=== PATIENT | female | born 1945 | race African-American/Black ===

== ENCOUNTER 2017-07-09 11:01 | Outpatient (CLI) | payer MEDICARE, OTHER ==
[~2017-07-09 11:01] MED LIST: ACETAMINOPHEN-1 EAC1 ORAL; HYDRALAZINE HC100 MG ORAL; METOPROLOL SUC100 MG ORAL; UNOBMED; cholesterol pill; hydrochlorothiazide
[2017-07-09 12:08] LABS: ANION GAP 9 mmol/L (5-15); BLOOD UREA NITROGEN 36 mg/dL (7-18); CALCIUM 9.1 MG/DL (8.5-10.1); CARBON DIOXIDE 22 MMOL/L (21-32); CHLORIDE 109 MMOL/L (98-107); CREATININE 1.9 MG/DL (0.55-1.30); POTASSIUM 5.6 MMOL/L (3.5-5.1); SODIUM 140 MMOL/L (136-145)
== END 2017-07-09 13:01 | disposition home or self-care (01) ==
LOC: LAB 11:01
DX: I27.20 Pulmonary hypertension, unspecified (principal)
CPT/HCPCS: 36415; 80048

== ENCOUNTER 2017-09-07 10:27 | Outpatient (CLI) | payer MEDICARE, OTHER ==
[2017-09-07 11:32] LABS: ANION GAP 9 mmol/L (5-15); BLOOD UREA NITROGEN 28 mg/dL (7-18); CALCIUM 9.1 MG/DL (8.5-10.1); CARBON DIOXIDE 25 MMOL/L (21-32); CHLORIDE 104 MMOL/L (98-107); CREATININE 2.2 MG/DL (0.55-1.30); POTASSIUM 4.8 MMOL/L (3.5-5.1); SODIUM 138 MMOL/L (136-145)
== END 2017-09-07 12:27 | disposition home or self-care (01) ==
LOC: LAB 10:27
DX: I10 Essential (primary) hypertension (principal)
CPT/HCPCS: 36415; 80048

== ENCOUNTER 2017-11-02 22:21 | Inpatient (IN) | payer MEDICARE, OTHER ==
[~2017-11-02] VITALS: Ht 165.1 cm; Wt 74.8 kg
[2017-11-02] MEDS ORDERED: HYZAAR 100-251 EACH ORAL (22:30)
[2017-11-02] MEDS ORDERED: Sodium Chloride 500ML 500 ML IV ONE (22:34)
[2017-11-03 00:03] LABS: BASOPHILS % (AUTO) 0.9 % (0.0-2.0); HEMATOCRIT 34.2 % (37.0-47.0); HEMOGLOBIN 11.2 G/DL (12.0-16.0); LYMPHOCYTES % (AUTO) 30.8 % (20.0-45.0); MEAN CORPUSCULAR VOLUME 97 FL (80-99); MONOCYTES % (AUTO) 9.5 % (1.0-10.0); NEUTROPHILS % (AUTO) 53.9 % (45.0-75.0); PLATELET COUNT 189 K/UL (150-450); RED BLOOD COUNT 3.52 M/UL (4.20-5.40); RED CELL DISTRIBUTION WIDTH 12.5 % (11.6-14.8); WHITE BLOOD COUNT 7.1 K/UL (4.8-10.8)
[2017-11-03 00:10] LABS: ANION GAP 8 mmol/L (5-15); BLOOD UREA NITROGEN 46 mg/dL (7-18); CALCIUM 8.4 MG/DL (8.5-10.1); CARBON DIOXIDE 24 MMOL/L (21-32); CHLORIDE 108 MMOL/L (98-107); CREATININE 2.4 MG/DL (0.55-1.30); POTASSIUM 5.3 MMOL/L (3.5-5.1); SODIUM 139 MMOL/L (136-145)
[2017-11-03 00:24] LABS: ALANINE AMINOTRANSFERASE 23 U/L (12-78); ALBUMIN 3.1 G/DL (3.4-5.0); ALBUMIN/GLOBULIN RATIO 0.8 (1.0-2.7); ALKALINE PHOSPHATASE 84 U/L (46-116); ASPARTATE AMINO TRANSFERASE 21 U/L (15-37); BILIRUBIN,TOTAL 0.1 MG/DL (0.2-1.0); CKMB 1.9 NG/ML (0.0-3.6); CREATINE KINASE 186 U/L (26-308)
[2017-11-03] MEDS ORDERED: Sodium Polystyrene Sulfonate 15gm Powder ORAL ONE (00:30)
--- NOTE | 2017-11-03 01:23 | Emergency Room Report ---
History of Present Illness General Chief Complaint: Abnormal Labs Source: Patient, Medical Record Present Illness HPI Patient was sent in for abnormal potassium levels Patient appears to have had initial potassium level several days ago one earlier today Patient was recommended to come to the emergency room at the time that the report was given however patient was not able to do so and presents at this time Denies any chest pain or shortness of breath Patient has been getting set for clearance for cataract surgery denies any vomiting or diarrhea Allergies: Coded Allergies: AMPICILLIN (Unverified Allergy, Intermediate, ITCH, 11/02/17) SULFA (SULFONAMIDE ANTIBIOTICS) (Unverified Allergy, Unknown, 11/02/17) swelling Patient History Past Medical History: see triage record Pertinent Family History: none Last Menstrual Period: n/a Reviewed Nursing Documentation: PMH: Agreed; PSxH: Agreed Nursing Documentation-PM Past Medical History: No Stated History Hx Cardiac Problems: Yes - high cholestrol Hx Hypertension: Yes Hx Cancer: No Hx Gastrointestinal Problems: No Hx Weakness: Yes Review of Systems All Other Systems: negative except mentioned in HPI Physical Exam Vital Signs Date Time Temp Pulse Resp B/P (MAP) Pulse Ox O2 Delivery O2 Flow Rate FiO2 11/02/17 22:24 97.9 69 16 180/84 97 Room Air 97.9 Sp02 EP Interpretation: reviewed, normal General Appearance: no apparent distress Head: normocephalic, atraumatic Eyes: bilateral eye PERRL ENT: hearing grossly normal, normal pharynx Neck: full range of motion, supple Respiratory: no respiratory distress Cardiovascular #1: regular rate, rhythm, no edema Gastrointestinal: non tender, soft Musculoskeletal: normal inspection Neurologic: alert, oriented x3, responsive Skin: normal color, no rash Lymphatic: no adenopathy Medical Decision Making Diagnostic Impression: Primary Impression: Hyperkalemia ER Course Patient is complex with multiple differentials considered Extensive blood work was initiated Patient's potassium still remains elevated at 5.3 EKG does not show any obvious gross T-wave changes however there are some subtle differences Patient requires acute intervention Requires admission for further care Labs Test 11/02/17 23:49 White Blood Count 7.1 K/UL (4.8-10.8) Red Blood Count 3.52 M/UL (4.20-5.40) Hemoglobin 11.2 G/DL (12.0-16.0) Hematocrit 34.2 % (37.0-47.0) Mean Corpuscular Volume 97 FL (80-99) Mean Corpuscular Hemoglobin 31.9 PG (27.0-31.0) Mean Corpuscular Hemoglobin Concent 32.9 G/DL (32.0-36.0) Red Cell Distribution Width 12.5 % (11.6-14.8) Platelet Count 189 K/UL (150-450) Mean Platelet Volume 8.3 FL (6.5-10.1) Neutrophils (%) (Auto) 53.9 % (45.0-75.0) Lymphocytes (%) (Auto) 30.8 % (20.0-45.0) Monocytes (%) (Auto) 9.5 % (1.0-10.0) Eosinophils (%) (Auto) 5.0 % (0.0-3.0) Basophils (%) (Auto) 0.9 % (0.0-2.0) Sodium Level 139 MMOL/L (136-145) Potassium Level 5.3 MMOL/L (3.5-5.1) Chloride Level 108 MMOL/L (98-107) Carbon Dioxide Level 24 MMOL/L (21-32) Anion Gap 8 mmol/L (5-15) Blood Urea Nitrogen 46 mg/dL (7-18) Creatinine 2.4 MG/DL (0.55-1.30) Estimat Glomerular Filtration Rate mL/min (>60) Glucose Level 108 MG/DL (74-106) Calcium Level 8.4 MG/DL (8.5-10.1) Total Bilirubin 0.1 MG/DL (0.2-1.0) Aspartate Amino Transf (AST/SGOT) 21 U/L (15-37) Alanine Aminotransferase (ALT/SGPT) 23 U/L (12-78) Alkaline Phosphatase 84 U/L (46-116) Total Creatine Kinase 186 U/L (26-308) Creatine Kinase MB 1.9 NG/ML (0.0-3.6) Creatine Kinase MB Relative Index 1.0 Troponin I 0.000 ng/mL (0.000-0.056) Total Protein 6.8 G/DL (6.4-8.2) Albumin 3.1 G/DL (3.4-5.0) Globulin 3.7 g/dL Albumin/Globulin Ratio 0.8 (1.0-2.7) Rhythm Strip Diag. Results EP Interpretation: yes Rate: 88 Rhythm: NSR, no PVC's, no ectopy Chest X-Ray Diagnostic Results Chest X-Ray Diagnostic Results : Chest X-Ray Ordered: Yes # of Views/Limited/Complete: 1 View Indication: Chest Pain EP Interpretation: Yes Interpretation: no consolidation, no effusion, no pneumothorax Impression: No acute disease Electronically Signed by: Candis Keating DO Last Vital Signs Date Time Temp Pulse Resp B/P (MAP) Pulse Ox O2 Delivery O2 Flow Rate FiO2 11/02/17 22:24 97.9 69 16 180/84 97 Room Air 97.9 Status: improved Disposition: ADMITTED INPATIENT Condition: Serious Referrals: Danny Nash MD (PCP) Candis Keating DO November 03, 2017 01:23
[2017-11-03 02:00] VITALS: BP 182/87
[2017-11-03 02:07] VITALS: BP 138/89
[2017-11-03] MEDS ORDERED: DIAZEPAM10 MG PO (02:45)
[2017-11-03] MEDS ORDERED: EZETIMIBE (02:45)
[2017-11-03 04:00] VITALS: BP 148/65
[2017-11-03] MEDS ORDERED: Tylenol #3 tab (300mg/30mg) ORAL PRN (06:45)
[2017-11-03] MEDS ORDERED: METOPROLOL TAR100 M1 PO (06:46)
[2017-11-03 08:00] VITALS: BP 149/81
[2017-11-03 08:07] LABS: BASOPHILS % (AUTO) 0.8 % (0.0-2.0); EOSINOPHILS % (AUTO) 6.1 % (0.0-3.0); HEMATOCRIT 32.8 % (37.0-47.0); HEMOGLOBIN 10.5 G/DL (12.0-16.0); LYMPHOCYTES % (AUTO) 31.7 % (20.0-45.0); MEAN CORPUSCULAR VOLUME 97 FL (80-99); MONOCYTES % (AUTO) 9.2 % (1.0-10.0); NEUTROPHILS % (AUTO) 52.2 % (45.0-75.0); PLATELET COUNT 168 K/UL (150-450); RED BLOOD COUNT 3.37 M/UL (4.20-5.40); RED CELL DISTRIBUTION WIDTH 12.4 % (11.6-14.8); WHITE BLOOD COUNT 5.8 K/UL (4.8-10.8)
[2017-11-03 08:30] LABS: ALANINE AMINOTRANSFERASE 24 U/L (12-78); ALBUMIN 2.9 G/DL (3.4-5.0); ALBUMIN/GLOBULIN RATIO 0.8 (1.0-2.7); ALKALINE PHOSPHATASE 83 U/L (46-116); ANION GAP 7 mmol/L (5-15); ASPARTATE AMINO TRANSFERASE 23 U/L (15-37); BILIRUBIN,TOTAL 0.2 MG/DL (0.2-1.0); BLOOD UREA NITROGEN 42 mg/dL (7-18); CALCIUM 8.5 MG/DL (8.5-10.1); CARBON DIOXIDE 25 MMOL/L (21-32); CHLORIDE 109 MMOL/L (98-107); CREATININE 2.1 MG/DL (0.55-1.30); POTASSIUM 4.8 MMOL/L (3.5-5.1); SODIUM 141 MMOL/L (136-145)
[2017-11-03] MEDS ORDERED: HydrALAZINE 50mg tab ORAL SCH (09:00)
--- NOTE | 2017-11-03 11:31 | Diagnostic Imaging Report ---
Indication: Chest pain Technique: One view of the chest Comparison: none Findings: Lungs and pleural spaces are clear. The heart size is normal. The aorta is calcified. There is no significant interim change Impression: No acute process
[2017-11-03 12:00] VITALS: BP 149/81
--- NOTE | 2017-11-03 13:15 | Consultation ---
DATE OF CONSULTATION: 11/03/2017 CONSULTING PHYSICIAN: Akhil Prince M.D. REFERRING PHYSICIAN: Danny Nash M.D. REASON FOR CONSULTATION: 1. Acute kidney injury. 2. CKD 4. 3. Hyperkalemia. HISTORY OF PRESENT ILLNESS: The patient is a pleasant 72-year-old female, who is instructed to go to the emergency room for further evaluation and care due to abnormal labs where it was noted that the patient had an elevated potassium. Upon presentation, the patient had a potassium of 5.3 with a creatinine of 2.4. The patient was hydrated and given Kayexalate. This morning, creatinine is down to 2.1 and potassium down to 4.8. The patient had a creatinine five days ago in the baseline range of 2.1. 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 No current chest pain or shortness of breath. ALLERGIES: 1. Ampicillin. 2. Sulfa. PAST MEDICAL HISTORY: 1. CKD 4. 2. Hypertension. 3. Hyperlipidemia. SOCIAL HISTORY: No tobacco, alcohol, or illicit drug use. PAST SURGICAL HISTORY: Noncontributory. REVIEW OF SYSTEMS: NEUROLOGIC: The patient denies headache, change in vision, syncope, or presyncopal episodes. CARDIOVASCULAR: No current chest pain, palpitations, or angina. PULMONARY: No difficulty breathing or productive cough or sputum. GASTROINTESTINAL/GENITOURINARY: No change in urinary or bowel habits. No nausea, vomiting, or diarrhea. ENDOCRINOLOGY: No night sweats, fevers, or chills. PHYSICAL EXAMINATION: VITAL SIGNS: Blood pressure 148/65, pulse 67, temperature 97.4, and 100% oxygen saturation on room air. GENERAL: The patient is awake, alert, not otherwise in distress. HEENT: Extraocular muscles intact. No lymphadenopathy noted. CARDIOVASCULAR: S1 and S2. No rubs or gallops. PULMONARY: Clear to auscultation bilaterally. No rales, rhonchi, or wheezes. ABDOMEN: Nondistended and nontender. EXTREMITIES: No edema. ASSESSMENT AND PLAN: 1. Acute kidney injury on CKD stage 4. The patient's creatinine within baseline range, creatinine from October 29, 2017. At this time, renal function is stable. We will order a renal ultrasound and the patient to follow up as an outpatient for CKD evaluation. 2. Mild hyperkalemia, potassium 5.3 down to normal range. Status post Kayexalate treatment. At this time, renal ultrasound will also be ordered to rule out the possibility of any underlying obstruction. 3. Hypertension, stable. Adjust medications as deemed appropriate. Let me take this opportunity to thank Dr. Nash, for allowing me to assist in the care of this patient during her hospitalization. I appreciate his confidence in my nephrological service. Akhil Prince MD DR: MANFRED JOB#: [id number] CC:
--- NOTE | 2017-11-03 13:30 | History and Physical Report ---
DATE OF ADMISSION: 11/03/2017 REASON FOR ADMISSION: Acute on chronic renal failure. HISTORY OF PRESENT ILLNESS: This 72-year-old female noted to have elevated potassium. The patient was sent to the emergency room for further evaluation and has had a persistently elevated potassium level. The patient is also with worsening renal function. The patient's care was discussed and reviewed with the ER physician. The patient is now admitted for ongoing care and management and further evaluation in the acute setting and treatment of the elevated potassium. The patient has been taking her medications as prescribed. She denies any potassium use. Denies any ARB or NADIA use at present. The patient denies any issues with urine output and has been trying to get clearance for cataract surgery, which prompted repeating these laboratory data. The patient is now being admitted. She is otherwise stable. PAST MEDICAL HISTORY: Notable for, 1. Hypertension. 2. Chronic renal insufficiency. 3. Chronic pain. 4. Chronic anxiety. 5. Cataracts bilaterally. 6. Hypercholesterolemia. MEDICATIONS: Reviewed. ALLERGIES: Reviewed. SOCIAL HISTORY: The patient is a nonsmoker and nondrinker at present. She is retired and disabled. REVIEW OF SYSTEMS: All 10 points reviewed and otherwise negative. PHYSICAL EXAMINATION: GENERAL: A well-developed female, in no significant distress. VITAL SIGNS: Blood pressure 148/65, pulse 67, sats 100%, temperature 97.4, and respiratory rate 20. HEENT: Overall negative. Extraocular movements are grossly intact. Cataracts noted. Oropharynx moist. LUNGS: Clear. No rhonchi or wheezes. CARDIAC: S1 and S2. Regular rate and rhythm. Soft systolic murmur. Positive S4. ABDOMEN: Soft, nontender, and nondistended. EXTREMITIES: No cyanosis or clubbing. No significant edema. NEUROLOGICAL: Grossly nonfocal and alert. SKIN: Noted. LABORATORY DATA: Lab data reviewed. BUN 46 and creatinine 2.4. Blood sugar 108. Potassium 5.3 . Albumin is 3.1. Hemoglobin 11.2 and hematocrit 34. IMPRESSION: 1. Acute on chronic renal failure. 2. Hyperkalemia. 3. Mild anemia. 4. Hypertension. 5. Hypertensive heart disease. 6. Hypertensive nephropathy. 7. Hypercholesterolemia. RECOMMENDATIONS: 1. Supportive care. 2. Resume medications. 3. IV hydration. 4. Followup care. 5. Followup renal function. 6. Renal evaluation. 7. Monitor clinically and discharge once stable and hope to provide clearance once electrolytes have improved. Danny Nash M.D. DR: BRIDGET JOB#: [id number] CC:
[2017-11-03 13:54] VITALS: BP 152/81
--- NOTE | 2017-11-03 14:31 | Cardiology Report ---
APPROVED REPORT EKG Measurement Heart [id number] Normal sinus rhythm Possible Left atrial enlargement Left ventricular hypertrophy Abnormal ECG
--- NOTE | 2017-11-05 09:52 | Discharge Summary ---
Discharge Summary Hospital Course Date of Admission November 03, 2017 at 00:36 Date of Discharge November 03, 2017 at 13:41 Admitting Diagnosis hyperkalemia HPI Amy Peng is a 72 year old female who was admitted on November 03, 2017 at 00:36 for Hyperkalemia Hospital Course [id number] Discharge Discharge Disposition Patient was discharged to Home (01) Kajal Murphy NP November 05, 2017 09:51
--- NOTE | 2017-11-06 02:15 | Discharge Summary 2 SIG ---
DATE OF ADMISSION: 11/03/2017 DATE OF DISCHARGE: 11/03/2017 LAND COMMISSIONER: Akhil Prince M.D. BRIEF HOSPITAL COURSE: The patient is a 72-year-old female, who was noted to have elevated potassium. She was sent to emergency room for further evaluation where on examination continued to have persistently elevated potassium of 5.3. She was also noted to be in renal failure. Creatinine was elevated to 2.4 and BUN 46. She was admitted for evaluation of acute renal failure and elevated potassium. She denied any potassium use. Denied any ARB or NADIA inhibitor. She has medical history notable for hypertension, chronic renal insufficiency, chronic pain, chronic anxiety, bilateral cataracts, and hypercholesterolemia. She was seen by rehab assistant. The patient was given Kayexalate. Following day, creatinine went down to 2.1 and potassium 4.8. The patient had acute kidney injury on chronic kidney disease stage 4. Due to rapid improvement in the patient's symptoms, she was eventually discharged home. Renal ultrasound to be done as outpatient. FINAL DIAGNOSES: 1. Acute on chronic renal failure. 2. Chronic kidney disease stage 4. 3. Acute hyperkalemia, resolved. 4. Mild anemia. 5. Hypertension. 6. Hypertensive heart disease. 7. Hypertensive nephropathy. 8. Hypercholesterolemia. DISPOSITION: The patient was discharged home. DISCHARGE MEDICATIONS: Refer to medication list. DISCHARGE INSTRUCTIONS: Follow up with PCP in a week. Danny Nash M.D. I have been assigned to dictate discharge summary on this account and I was not involved in the patient's management. Kajal Murphy N.P. DR: BARON JOB#: [id number] CC: LOUANN
== END 2017-11-03 13:41 | disposition home or self-care (01) | DRG 684 ==
LOC: EMR 22:44 → 2E 11-03 00:36 → EDBEDREQ 11-03 00:48
DX: N17.9 Acute kidney failure, unspecified (principal); I13.10 Hypertensive heart and chronic kidney disease without heart failure, with stage 1 through stage 4 chronic kidney disease, or unspecified chronic kidney disease; N18.4 Chronic kidney disease, stage 4 (severe); F41.9 Anxiety disorder, unspecified; E78.00 Pure hypercholesterolemia, unspecified; E87.5 Hyperkalemia; D64.9 Anemia, unspecified; Z88.1 Allergy status to other antibiotic agents; Z88.2 Allergy status to sulfonamides
CPT/HCPCS: 36415; 71045; 80053; 82550; 82553; 84484; 85025; 93005; 99285

== ENCOUNTER 2018-06-09 10:05 | Outpatient (CLI) | payer MEDICARE, OTHER ==
[~2018-06-09 10:05] MED LIST changes: +DIAZEPAM10 MG PO; +EZETIMIBE; +HYZAAR 100-251 EACH ORAL; +METOPROLOL TAR100 M1 PO
--- NOTE | 2018-06-09 11:27 | Diagnostic Imaging Report ---
Clinical Indication: Shortness of breath Technique: Spiral acquisitions obtained through the chest. No IV contrast utilized, for referring physician request. Multiplanar reconstructions generated. Total dose length product 684.08 mGycm. CTDIvol(s) 20.02 mGy. Dose reduction achieved using automated exposure control Comparison: none Findings: There is a 2 mm nodular focus of pleural thickening along the pleural surface of the minor fissure on the right, image 33 series 5. There is some generalized thickening of the major fissure inferiorly on the right. Some scarring is seen in the medial right middle lobe. A granulomatous calcification is seen within the left lower lobe, with some surrounding scarring Atelectatic bands and scarring are also seen in the inferior right lower lobe. Some scarring and atelectasis is seen in the lingula and left lower lobe. No infiltrates, effusions, masses, or nodules demonstrated. Calcified granulomatous nodes are seen in the left pulmonary hilum and mediastinum. No mediastinal or hilar mass or adenopathy demonstrated. The heart size is normal. No pericardial effusion. There are coronary arterial calcifications. The right main pulmonary artery is dilated, measuring 30 mm in diameter. The thyroid is unremarkable. No axillary or chest wall mass or adenopathy. The bones are unremarkable. The esophagus is unremarkable. The included upper abdominal anatomy demonstrates a collection containing air and fluid with an air-fluid level posterior to the gastric fundus which measures 7 cm long axis dimension. This is also evident on a previous abdomen pelvis CT of 05/23/2014. Granulomatous calcifications are seen within the spleen. 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
== END 2018-06-09 12:05 | disposition home or self-care (01) ==
LOC: CAT 10:05
DX: R07.9 Chest pain, unspecified (principal); R06.02 Shortness of breath; I25.10 Atherosclerotic heart disease of native coronary artery without angina pectoris
CPT/HCPCS: 71250

== ENCOUNTER 2018-06-17 19:00 | Emergency (ER) | payer MEDICARE, OTHER ==
[~2018-06-17] VITALS: Ht 167.6 cm; Wt 77.1 kg
[2018-06-17 19:05] VITALS: BP 170/84
[2018-06-17] MEDS ORDERED: Ketorolac 30mg Inj IM ONE (19:30)
--- NOTE | 2018-06-17 20:13 | Emergency Room Report ---
History of Present Illness General Chief Complaint: Pain Present Illness HPI 73-year-old female presents to the emergency department complaining of 8 out of 10 in severity localized anterior left knee pain since last night. Patient denies trauma or fall she states she has a history of arthritis. Patient reports that she feels that there is some swelling in the left knee. Patient denies erythema, warmth or recent wound near the joint. Patient reports pain is worse with walking however she is able to. Patient denies calf pain posterior knee pain. Denies numbness tingling or loss of sensation or gross motor movements of the extremities, incontinence of bowel or bladder. Denies CP , Palpitations, LOC, AMS, dizziness, Changes in Vision, weakness or a sudden severe headache. (Tashia Smart) Allergies: Coded Allergies: SULFA (SULFONAMIDE ANTIBIOTICS) (Unverified Allergy, Severe, SWELLING, ) AMPICILLIN (Unverified Allergy, Intermediate, ITCHING, 11/05/17) Patient History Past Medical History: see triage record, other - Arthritis. Past Surgical History: none Pertinent Family History: none Last Menstrual Period: IVAN Now: No Reviewed Nursing Documentation: PMH: Agreed; PSxH: Agreed (Tashia Smart) Nursing Documentation-PMH Hx Cardiac Problems: Yes Hx Hypertension: Yes - HI CHOLEST Hx Cancer: No Hx Gastrointestinal Problems: No Hx Neurological Problems: Yes Hx Weakness: Yes (Tashia Smart) Review of Systems All Other Systems: negative except mentioned in HPI (Tashia Smart) Physical Exam Vital Signs Date Time Temp Pulse Resp B/P (MAP) Pulse Ox O2 Delivery O2 Flow Rate FiO2 06/17/18 19:05 98.1 74 18 99 Room Air 06/17/18 19:05 170/84 Sp02 EP Interpretation: reviewed, normal General Appearance: no apparent distress, alert, GCS 15, non-toxic Head: normocephalic, atraumatic Eyes: bilateral eye normal inspection, bilateral eye PERRL ENT: hearing grossly normal, normal voice Neck: full range of motion Respiratory: lungs clear, normal breath sounds, speaking full sentences Cardiovascular #1: regular rate, rhythm Musculoskeletal: back normal, gait/station normal, normal range of motion, swelling - mild- anterior left knee, other - no increased laxity, ambulatory and able to fully weight bear. No obvious deformity, no bruises, erythema or warmth. , tender - anterior left knee Neurologic: alert, oriented x3, responsive, motor strength/tone normal, sensory intact, speech normal, grossly normal Psychiatric: judgement/insight normal Skin: normal color, no rash, warm/dry, well hydrated (Tashia Smart) Medical Decision Making PA Attestation Dr. Luong is my supervising Physician whom patient management has been discussed with. (Tashia Smart) Diagnostic Impression: Primary Impression: Knee pain, acute Qualified Codes: M25.562 - Pain in left knee Additional Impression: Arthritis of knee, left ER Course 73-year-old female presents to the emergency department complaining of 8 out of 10 in severity localized anterior left knee pain since last night. Patient denies trauma or fall she states she has a history of arthritis. Patient reports that she feels that there is some swelling in the left knee. Patient denies erythema, warmth or recent wound near the joint. Patient reports pain is worse with walking however she is able to. Patient denies calf pain posterior knee pain. Denies numbness tingling or loss of sensation or gross motor movements of the extremities, incontinence of bowel or bladder. Denies CP , Palpitations, LOC, AMS, dizziness, Changes in Vision, weakness or a sudden severe headache. Ddx considered but are not limited to Fracture, dislocation, contusion, septic joint, pseudo gout, gout, cellulitis, effusion , Sprain/Strain/Spasm, ligamental injury just to name a few. Vital signs: are WNL, pt. is afebrile H&PE are most consistent with Knee pain secondary to arthritis, not highly suspicious of fx, will do imaging, no evidence of infection. ORDERS: X-ray Left knee complete 3 view - negative for fx, Dislocation, or significant soft tissue injury ED INTERVENTIONS: -Toradol IM - Gerald wrap applied by histologist technologist. -I do not identify an emergent condition at this time. With current presentation , pt. is stable for close outpatient follow up and conservative treatment. D/ w pt. to return promptly to ED with worsening or new symptoms.- Pt. verbalizes' understanding and agreement with proposed treatment plan.proposed treatment plan. DISCHARGE: At this time pt. is stable for d/c to home. Will provide printed patient care instructions, and any necessary prescriptions. Care plan and follow up instructions have been discussed with the patient prior to discharge. (Tashia Smart) Other X-Ray Diagnostic Results Other X-Ray Diagnostic Results : X-Ray ordered: Left knee # of Views/Limited Vs Complete: 3 View Indication: Pain EP Interpretation: Yes KASIE Xray: Interpretation reviewed, by supervising MD, and agrees with findings. Interpretation: no dislocation, no soft tissue swelling, no fractures Impression: No acute disease Electronically Signed by: Tashia Smart PA-C (Tashia Smart) Other X-Ray Diagnostic Results : Electronically Signed by: KASIE xray documentation reviewed by me and is accurate, Darío Luong MD. (Darío Luong MD) Last Vital Signs Date Time Temp Pulse Resp B/P (MAP) Pulse Ox O2 Delivery O2 Flow Rate FiO2 06/17/18 19:05 98.1 74 18 170/84 99 Room Air (Tashia Smart) Disposition: HOME, SELF-CARE Condition: Stable Scripts Ibuprofen* (MOTRIN*) 600 Mg Tablet 600 MG ORAL THREE TIMES A DAY, #20 TAB 0 Refills Prov: Tashia Smart 06/17/18 Patient Instructions: Knee Pain, [id number] Additional Instructions: Take medications as directed. Follow up with a Primary Care Provider in 3-5 days, even if your symptoms have resolved. --Please review list of primary care clinics, if you do not already have a primary care provider Return sooner to ED if new symptoms occur, or current symptoms become worse. - Please note that this Emergency Department Report was dictated using [employer] crane operator technology software, occasionally this can lead to erroneous entry secondary to interpretation by the dictation equipment. Tashia Smart Jun 17, 2018 20:13 Darío Luong MD Jun 18, 2018 21:20
[2018-06-17] MEDS ORDERED: IBUPROFEN600 MG ORAL (20:15)
[2018-06-17 20:36] VITALS: BP 170/84
--- NOTE | 2018-06-18 11:38 | Diagnostic Imaging Report ---
Indication: Left knee pain Technique: 3 views of the left knee Comparison: None Findings: There is severe medial compartmental degenerative joint space narrowing with degenerative remodeling of the medial tibial plateau. There are lateral osteophytes. There is mild patellofemoral degenerative change. No acute fractures. No dislocations. No suprapatellar effusion Impression: Degenerative changes, as described No acute bony trauma
== END 2018-06-17 20:36 | disposition home or self-care (01) ==
LOC: EMR 19:42
DX: M17.12 Unilateral primary osteoarthritis, left knee (principal)
CPT/HCPCS: 73562; 96372; 99283; J1885

== ENCOUNTER 2018-10-03 12:18 | Emergency (ER) | payer MEDICARE, OTHER ==
[~2018-10-03] VITALS: Ht 157.5 cm; Wt 83.0 kg
[~2018-10-03 12:18] MED LIST changes: +IBUPROFEN600 MG ORAL
[2018-10-03 12:43] VITALS: BP 160/63
--- NOTE | 2018-10-03 12:47 | NUR ---
ED Nurse Note: PT. AAOX4. AMBULATORY. CAME IN TO ER DUE TO BILATERAL KNEE PAIN. DENIES ANY TRAUMA AND DID NOT TAKE ANY PAIN MEDS PRIOR TO ER ARRIVAL. BILATERAL KNEE APPEARS TO BE SWOLLEN
[2018-10-03] MEDS ORDERED: Tylenol #3 tab (300mg/30mg) ORAL ONE (13:00)
[2018-10-03] MEDS ORDERED: ACETAMINOPHEN-1 EAC1 ORAL (13:39)
[2018-10-03 13:45] VITALS: BP 155/65
--- NOTE | 2018-10-03 13:46 | NUR ---
ER DISCHARGE NOTE: Patient is cleared to be discharged per ERMD, pt is aox4, on room air, with stable vital signs. pt was given dc and prescription instructions, pt was able to verbalize understanding, pt id band and iv site removed without complications. pt is able to ambulate with steady gait. pt took all belongings.
--- NOTE | 2018-10-03 14:34 | Emergency Room Report ---
History of Present Illness General Chief Complaint: Pain Source: Patient Present Illness HPI The patient is a 73-year-old female presenting for bilateral knee pain. She states that this is a chronic condition. She denies any recent injury that caused the pain. Pain is a 9 out of 10 dull ache to both knees and does not radiate. Worse with movement. She states that she usually uses Tylenol 3 for pain which does help but she ran out. She denies any history of gout. She denies other symptoms including fever, chills, rash, numbness/tingling Allergies: Coded Allergies: SULFA (SULFONAMIDE ANTIBIOTICS) (Unverified Allergy, Severe, SWELLING, ) AMPICILLIN (Unverified Allergy, Intermediate, ITCHING, 11/05/17) Patient History Past Medical History: see triage record Pertinent Family History: none Reviewed Nursing Documentation: PMH: Agreed; PSxH: Agreed Nursing Documentation-PMH Hx Cardiac Problems: Yes Hx Hypertension: Yes - HI CHOLEST Hx Cancer: No Hx Gastrointestinal Problems: No Hx Neurological Problems: Yes Hx Weakness: Yes Review of Systems All Other Systems: negative except mentioned in HPI Physical Exam Vital Signs Date Time Temp Pulse Resp B/P (MAP) Pulse Ox O2 Delivery O2 Flow Rate FiO2 10/03/18 12:43 98.6 71 18 160/63 100 Room Air Sp02 EP Interpretation: reviewed, normal General Appearance: no apparent distress, alert, GCS 15, non-toxic Musculoskeletal: back normal, normal range of motion, no calf tenderness, swelling Neurologic: alert, oriented x3, responsive Psychiatric: judgement/insight normal, memory normal, mood/affect normal, no suicidal/homicidal ideation Skin: normal color, no rash, warm/dry, well hydrated Medical Decision Making PA Attestation Dr. Ni is my supervising physician. Patient management was discussed with my supervising physician Diagnostic Impression: Primary Impression: Osteoarthritis Qualified Codes: M17.0 - Bilateral primary osteoarthritis of knee Additional Impression: Knee pain Qualified Codes: M25.561 - Pain in right knee; M25.562 - Pain in left knee ER Course The patient is a 73-year-old female presenting for bilateral knee pain. Ddx considered include but not limited to OA, sprain/strain, fracture, contusion , gout PE: Afebrile. NAD There is bilateral knee swelling. No discoloration. Skin warm and dry. Nontender to palpation. Full active range of motion intact. Patient walks with slow gait. Bilateral knee x-ray shows significant degenerative changes with diminished joint space. No acute findings The patient is given prescription for Tylenol 3 and is told to follow-up with primary doctor as soon as possible. She was told she may need to see a specialist for further management ER precautions given Other X-Ray Diagnostic Results Other X-Ray Diagnostic Results #1: X-Ray ordered: L knee # of Views/Limited Vs Complete: 3 View, Complete Indication: Pain EP Interpretation: Yes PA Xray: Interpretation reviewed, by supervising MD, and agrees with findings. Interpretation: no dislocation, no soft tissue swelling, no fractures Impression: No acute disease Electronically Signed by: Dylan Medina PA-C Other X-Ray Diagnostic Results #2: X-Ray ordered: R knee # of Views/Limited Vs Complete: 3 View, Complete Indication: Pain EP Interpretation: Yes PA Xray: Interpretation reviewed, by supervising MD, and agrees with findings. Interpretation: no dislocation, no soft tissue swelling, no fractures Impression: No acute disease Electronically Signed by: Dylan Medina PA-C Last Vital Signs Date Time Temp Pulse Resp B/P (MAP) Pulse Ox O2 Delivery O2 Flow Rate FiO2 10/03/18 13:45 98.2 85 15 155/65 99 Room Air Status: improved Disposition: HOME, SELF-CARE Condition: Improved Scripts Acetaminophen With Codeine (T#3) (TYLENOL #3 TAB*) Y Tab 1 TAB ORAL Q6HR PRN for For Pain, #10 TAB Prov: DYLAN MEDINA 10/03/18 Referrals: NON PHYSICIAN (PCP) Patient Instructions: Knee Pain, Arthritis Additional Instructions: I discussed my findings with the patient. All questions and concerns have been answered. Treatment and medication compliance have been addressed. I advised the patient that they need to follow up with primary doctor within 3 days. Return to ER if pain remains or worsens, numbness or tingling occurs, new rash is noticed, fever is noticed, or if needed for any reason. Patient verbalized understanding of discharge instructions. You may need to see a specialist for this condition. Please ask your primary doctor if this is necessary DYLAN MEDINA Oct 03, 2018 14:34
--- NOTE | 2018-10-04 09:45 | Diagnostic Imaging Report ---
Indication: Right knee pain Technique: 3 views of the knee Comparison: 11/15/2015 Findings: Again demonstrated is degenerative narrowing of all 3 joint compartments, most severe in the medial compartment. This appears to progressed slightly since the previous exam. There are also degenerative proliferative changes. No acute fractures. No dislocations. No definite suprapatellar effusion. Impression: Degenerative changes, as described. No acute bony trauma
--- NOTE | 2018-10-04 09:48 | Diagnostic Imaging Report ---
Indication: Left knee pain Technique: 3 views of the left knee Comparison: None Findings: No acute fractures. No dislocations. There is medial compartment degenerative joint space narrowing and medial and lateral osteophytes. No definite suprapatellar effusion. Impression: Degenerative changes, stable since prior study 06/17/2018. No acute bony trauma
== END 2018-10-03 15:01 | disposition home or self-care (01) ==
LOC: EMR 14:05
DX: M17.0 Bilateral primary osteoarthritis of knee (principal); E78.00 Pure hypercholesterolemia, unspecified; Z88.2 Allergy status to sulfonamides; Z88.1 Allergy status to other antibiotic agents
CPT/HCPCS: 99284

== ENCOUNTER 2019-01-06 13:17 | Outpatient (CLI) | payer MEDICARE, OTHER ==
[2019-01-06 13:42] LABS: BASOPHILS % (AUTO) 0.7 % (0.0-2.0); EOSINOPHILS % (AUTO) 2.1 % (0.0-3.0); HEMATOCRIT 37.1 % (37.0-47.0); LYMPHOCYTES % (AUTO) 19.9 % (20.0-45.0); MEAN CORPUSCULAR VOLUME 99 FL (80-99); MONOCYTES % (AUTO) 5.3 % (1.0-10.0); PLATELET COUNT 233 K/UL (150-450); RED BLOOD COUNT 3.77 M/UL (4.20-5.40); RED CELL DISTRIBUTION WIDTH 13.4 % (11.6-14.8); WHITE BLOOD COUNT 10.1 K/UL (4.8-10.8)
[2019-01-06 14:02] LABS: ALANINE AMINOTRANSFERASE 22 U/L (12-78); ALBUMIN 3.5 G/DL (3.4-5.0); ALBUMIN/GLOBULIN RATIO 0.9 (1.0-2.7); ALKALINE PHOSPHATASE 115 U/L (46-116); ANION GAP 10 mmol/L (5-15); ASPARTATE AMINO TRANSFERASE 24 U/L (15-37); BILIRUBIN,TOTAL 0.2 MG/DL (0.2-1.0); BLOOD UREA NITROGEN 36 mg/dL (7-18); CALCIUM 9.5 MG/DL (8.5-10.1); CARBON DIOXIDE 20 MMOL/L (21-32); CHLORIDE 111 MMOL/L (98-107); CHOLESTEROL 208 MG/DL (< 200); CREATININE 2.7 MG/DL (0.55-1.30); HDL CHOLESTEROL 71 MG/DL (40-60); POTASSIUM 5.5 MMOL/L (3.5-5.1); SODIUM 141 MMOL/L (136-145); TRIGLYCERIDES 144 MG/DL (30-150)
== END 2019-01-06 15:17 | disposition home or self-care (01) ==
LOC: LAB 13:17
DX: I73.9 Peripheral vascular disease, unspecified (principal); E78.00 Pure hypercholesterolemia, unspecified; E66.9 Obesity, unspecified; I10 Essential (primary) hypertension
CPT/HCPCS: 36415; 80053; 80061; 82306; 84443; 85025

== ENCOUNTER 2019-01-10 17:10 | Emergency (ER) | payer MEDICARE, OTHER ==
[~2019-01-10] VITALS: Ht 165.1 cm; Wt 79.4 kg
[2019-01-10 17:30] VITALS: BP 144/77
--- NOTE | 2019-01-10 17:30 | NUR ---
ED Nurse Note: pt walked in c/o constipation for 5 days. prune juice and laxatives not effective. pt stated the last time she has bm was 5 days ago, pt was seen by nichole beltran. will continuet to monitor
--- NOTE | 2019-01-10 17:44 | NUR ---
ED Nurse Note: XRAY ON BEDSIDE
--- NOTE | 2019-01-10 18:29 | Emergency Room Report ---
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 no changes in meds. Not taking an pain medications regularly. no night sweats or changes in weight. no suspicion or familial hx of Ca. Pt. denies blood in the stool. Denies N/V. Pt. states she is able to pass gas. No fevers no chills. She reports 5/10 in severity abdominal pressure/heaviness that she describes as urge to have a bm. Pt. reports only very little passes. Pt. denies hemorrhoids or mucus. Denies any other symptoms other than urge to have BM but with hard stool and difficulty. She denies abdominal tenderness. Denies hx of abdominal surgeries or bowel obstruction. (Tashia Smart) Allergies: Coded Allergies: SULFA (SULFONAMIDE ANTIBIOTICS) (Unverified Allergy, Severe, SWELLING, ) AMPICILLIN (Unverified Allergy, Intermediate, ITCHING, 11/05/17) Patient History Past Medical History: see triage record Past Surgical History: none Pertinent Family History: none Now: No Reviewed Nursing Documentation: PMH: Agreed; PSxH: Agreed (Tashia Smart) Nursing Documentation-PMH Past Medical History: No History, Except For Hx Cardiac Problems: Yes Hx Hypertension: Yes Hx Cancer: No Hx Gastrointestinal Problems: No Hx Neurological Problems: Yes Hx Weakness: Yes (Tashia Smart) Review of Systems All Other Systems: negative except mentioned in HPI (Tashia Smart) Physical Exam Vital Signs Date Time Temp Pulse Resp B/P (MAP) Pulse Ox O2 Delivery O2 Flow Rate FiO2 01/10/19 17:17 98.4 71 18 144/77 (99) 97 Room Air Sp02 EP Interpretation: reviewed, normal General Appearance: no apparent distress, alert, GCS 15, non-toxic Head: normocephalic, atraumatic Eyes: bilateral eye normal inspection, bilateral eye PERRL ENT: hearing grossly normal, normal voice Neck: full range of motion Respiratory: chest non-tender, lungs clear, normal breath sounds, speaking full sentences Cardiovascular #1: regular rate, rhythm Gastrointestinal: normal bowel sounds, non tender, soft, non-distended, no guarding Rectal: deferred Genitourinary: normal inspection, no CVA tenderness Musculoskeletal: back normal, gait/station normal, normal range of motion, non- tender Neurologic: alert, oriented x3, responsive, motor strength/tone normal, sensory intact, speech normal, grossly normal Psychiatric: judgement/insight normal (Tashia Smart) Medical Decision Making PA Attestation Dr. Kiser is my supervising Physician whom patient management has been discussed with. (Tashia Smart) Medicare Attestation The history of Amy Peng has been reviewed and management options for her have been examined and discussed by Curtis Kiser. I have personally examined and interviewed the patient. 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 no changes in meds. Not taking an pain medications regularly. no night sweats or changes in weight. no suspicion or familial hx of Ca. Pt. denies blood in the stool. Denies N/V. Pt. states she is able to pass gas. No fevers no chills. She reports 5/10 in severity abdominal pressure/heaviness that she describes as urge to have a bm. Pt. reports only very little passes. Pt. denies hemorrhoids or mucus. Denies any other symptoms other than urge to have BM but with hard stool and difficulty. She denies abdominal tenderness. Denies hx of abdominal surgeries or bowel obstruction. Ddx considered but are not limited to constipation , appendicitis, SBO, ectopic , PID, tubo-ovarian abscess. Vital signs: are WNL, pt. is afebrile H&PE are most consistent with constipation. bowl sounds are normo active. ORDERS: Abdominal KUB-- no dilated loops of bowel. moderate fecal matter noted. ED INTERVENTIONS: DISCHARGE: At this time pt. is stable for d/c to home. Will provide printed patient care instructions, and any necessary prescriptions. Care plan and follow up instructions have been discussed with the patient prior to discharge. (Tashia Smart) Other X-Ray Diagnostic Results Other X-Ray Diagnostic Results : X-Ray ordered: Abdominal KUB # of Views/Limited Vs Complete: 1 View Indication: Pain EP Interpretation: Yes PA Xray: Interpretation reviewed, by supervising MD, and agrees with findings. Interpretation: no dislocation, nonspecific bowel gas Impression: Other - abnormal: moderate amount of stool, no visible dilated loops of bowel or visible obstruction Electronically Signed by: Tashia Smart PA-C (Tashia Smart) Last Vital Signs Date Time Temp Pulse Resp B/P (MAP) Pulse Ox O2 Delivery O2 Flow Rate FiO2 01/10/19 17:17 98.4 71 18 144/77 (99) 97 Room Air (Tashia Smart) Disposition: HOME, SELF-CARE Condition: Stable Scripts Na Phos,M-B/Na Phos,Di-Ba (ENEMA [id number]-OCM) 133 Ml Enema 133 ML RC BID, #2 EA Prov: Tashia Smart 01/10/19 Lactulose (LACTULOSE*) 20 Gm/30 Ml Solution 30 ML ORAL BID, #180 ML 0 Refills Prov: Tashia Smart 01/10/19 Patient Instructions: Abdominal Pain, Adult, [id number], Constipation, Adult Additional Instructions: Take medications as directed. Follow up with a Primary Care Provider within 3 days, even if your symptoms have resolved. --Please review list of primary care clinics, if you do not already have a primary care provider Return sooner to ED if new symptoms occur, or current symptoms become worse. - Please note that this Emergency Department Report was dictated using [employer] editor technology software, occasionally this can lead to erroneous entry secondary to interpretation by the dictation equipment. Tashia Smart Jan 10, 2019 18:29 Curtis Kiser MD Jan 12, 2019 13:59
[2019-01-10] MEDS ORDERED: LACTULOSE20 GM/301 ORAL (18:31)
[2019-01-10] MEDS ORDERED: ENEMA READY-TO133 ML RC (18:31)
[2019-01-10 18:42] VITALS: BP 140/75
--- NOTE | 2019-01-10 18:42 | NUR ---
ER DISCHARGE NOTE: Patient is cleared to be discharged per ERMD, pt is aox4, on room air, with stable vital signs. pt was given dc and prescription instructions, pt was able to verbalize understanding, pt id band removed without complications. pt is able to ambulate with steady gait. pt took all belongings.
--- NOTE | 2019-01-11 10:03 | Diagnostic Imaging Report ---
Indication: Abdominal pain Technique: Supine view of the abdomen Comparison: 05/22/2014 Findings: Bowel gas pattern is unremarkable. No masses or unusual calcifications. There are fairly extensive vascular calcifications noted. There are degenerative changes of the lumbosacral spine. No significant interim change Impression: No acute process
== END 2019-01-10 18:50 | disposition home or self-care (01) ==
LOC: EMR 18:47
DX: K59.00 Constipation, unspecified (principal); R10.30 Lower abdominal pain, unspecified; I10 Essential (primary) hypertension; Z88.2 Allergy status to sulfonamides
CPT/HCPCS: 74018; 99283

== ENCOUNTER 2019-04-29 11:49 | Outpatient (CLI) | payer MEDICARE, OTHER ==
[~2019-04-29 11:49] MED LIST changes: +ENEMA READY-TO133 ML RC; +LACTULOSE20 GM/301 ORAL
[2019-04-29 12:49] LABS: APPEARANCE,URINE CLEAR; BILIRUBIN, URINE NEGATIVE (NEGATIVE); COLOR,URINE PALE YELLOW; GLUCOSE, URINE (UA) NEGATIVE (NEGATIVE); KETONES,URINE NEGATIVE (NEGATIVE); LEUKOCYTE ESTERASE ,URINE 1+ (NEGATIVE); NITRITE,URINE NEGATIVE (NEGATIVE); PH,URINE 5 (4.5-8.0); PROTEIN,URINE 4+ (NEGATIVE); UROBILINOGEN,URINE NORMAL MG/DL (0.0-1.0)
[2019-04-29 13:19] LABS: ALANINE AMINOTRANSFERASE 23 U/L (12-78); ALBUMIN 3.6 G/DL (3.4-5.0); ALBUMIN/GLOBULIN RATIO 0.9 (1.0-2.7); ALKALINE PHOSPHATASE 116 U/L (46-116); ANION GAP 11 mmol/L (5-15); ASPARTATE AMINO TRANSFERASE 24 U/L (15-37); BILIRUBIN,TOTAL 0.3 MG/DL (0.2-1.0); BLOOD UREA NITROGEN 35 mg/dL (7-18); CALCIUM 8.6 MG/DL (8.5-10.1); CARBON DIOXIDE 20 MMOL/L (21-32); CHLORIDE 111 MMOL/L (98-107); CHOLESTEROL 205 MG/DL (< 200); CREATININE 2.6 MG/DL (0.55-1.30); HDL CHOLESTEROL 66 MG/DL (40-60); POTASSIUM 5.4 MMOL/L (3.5-5.1); SODIUM 142 MMOL/L (136-145); TRIGLYCERIDES 140 MG/DL (30-150)
== END 2019-04-29 13:49 | disposition home or self-care (01) ==
LOC: LAB 11:49
DX: I10 Essential (primary) hypertension (principal); E78.00 Pure hypercholesterolemia, unspecified; E78.5 Hyperlipidemia, unspecified; E66.9 Obesity, unspecified; R42 Dizziness and giddiness
CPT/HCPCS: 36415; 80053; 80061; 81001; 82306; 84436; 84443; 84481

== ENCOUNTER 2019-08-04 11:45 | Outpatient (CLI) | payer MEDICARE, OTHER ==
[2019-08-04 12:23] LABS: BASOPHILS % (AUTO) 0.6 % (0.0-2.0); HEMATOCRIT 37.2 % (37.0-47.0); HEMOGLOBIN 12.3 G/DL (12.0-16.0); LYMPHOCYTES % (AUTO) 26.5 % (20.0-45.0); MEAN CORPUSCULAR VOLUME 98 FL (80-99); MONOCYTES % (AUTO) 5.2 % (1.0-10.0); NEUTROPHILS % (AUTO) 64.7 % (45.0-75.0); PLATELET COUNT 205 K/UL (150-450); RED BLOOD COUNT 3.82 M/UL (4.20-5.40); RED CELL DISTRIBUTION WIDTH 13.2 % (11.6-14.8); WHITE BLOOD COUNT 8.8 K/UL (4.8-10.8)
[2019-08-04 13:15] LABS: ALANINE AMINOTRANSFERASE 23 U/L (12-78); ALBUMIN 3.3 G/DL (3.4-5.0); ALBUMIN/GLOBULIN RATIO 0.8 (1.0-2.7); ALKALINE PHOSPHATASE 125 U/L (46-116); ASPARTATE AMINO TRANSFERASE 21 U/L (15-37); BILIRUBIN,TOTAL 0.2 MG/DL (0.2-1.0); BLOOD UREA NITROGEN 36 mg/dL (7-18); CALCIUM 9.1 MG/DL (8.5-10.1); CARBON DIOXIDE 18 MMOL/L (21-32); CHOLESTEROL 187 MG/DL (< 200); FERRITIN 127 NG/ML (8-388); HDL CHOLESTEROL 57 MG/DL (40-60); TRIGLYCERIDES 161 MG/DL (30-150)
[2019-08-04 13:28] LABS: CHLORIDE 108 MMOL/L (98-107); POTASSIUM 5.1 MMOL/L (3.5-5.1); SODIUM 140 MMOL/L (136-145)
[2019-08-04 13:43] LABS: % IRON SATURATION 35 % (15-50); IRON 91 ug/dL (50-175); TOTAL IRON BINDING CAPACITY 261 ug/dL (250-450)
== END 2019-08-04 13:45 | disposition home or self-care (01) ==
LOC: LAB 11:45
DX: I10 Essential (primary) hypertension (principal); E78.00 Pure hypercholesterolemia, unspecified
CPT/HCPCS: 36415; 80053; 80061; 82670; 82728; 83540; 83550; 84403; 85025

== ENCOUNTER → 2019-10-20 | Outpatient (CLI) | payer MEDICARE, OTHER ==
[2019-10-20 10:47] LABS: CREATININE 3.6 MG/DL (0.55-1.30)
--- NOTE | 2019-10-20 14:11 | Diagnostic Imaging Report ---
Indication: History of vocal cord tumor Technique: No IV contrast utilized, due to history of renal insufficiency. Spiral acquisitions obtained through the neck. Multiplanar reconstructions were generated. Total dose length product 239 mGycm. CTDIvol(s) 60 mGy. Radiation dose was minimized using automated exposure control Comparison: none Findings: There is a polypoid lesion protruding off of the right true vocal cord. This measures 14 mm AP by 5 mm transverse by 4 mm craniocaudad. Given the lack of IV contrast and lack of fat surrounding the cord, degree of invasion, if any, possible to assess. The left focal cord appears unremarkable. The nasopharynx, oropharynx, hypopharynx are unremarkable. No cervical adenopathy is evident. There is a mass in the midline immediately anterior to the lower cervical trachea. This appears to be arising off of the thyroid isthmus, from which extends cephalad, measures 13 mm AP by 14 mm transverse by approximately 30 mm craniocaudad. The included sinuses are clear. The mastoids are clear. The visualized intracranial structures are unremarkable. The salivary glands are unremarkable. The bilateral parapharyngeal spaces are clear, symmetrical. No prevertebral soft tissue swelling. The upper mediastinum demonstrates granulomatous calcifications within the left pulmonary hilum. The upper lungs are clear. The bones demonstrate mild degenerative spondylosis changes. There is evidence of multiple prior dental extractions. 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 Impression: 14 x 5 x 4 mm exophytic lesion of the right vocal cord. Differential considerations include vocal cord papilloma, vocal cord polyp, neoplasm, other possibilities No evidence of cervical lymphadenopathy 13 x 14 x 30 mm lesion of the thyroid isthmus. Recommend further evaluation with sonography Other findings as noted, including evidence of old granulomatous disease within the left pulmonary hilum, degenerative spondylosis The CT scanner at [facility] is accredited by the [employer] and the scans are performed using protocols designed to limit radiation exposure to as low as reasonably achievable to attain images of sufficient resolution adequate for diagnostic evaluation.
== END | disposition home or self-care (01) ==
LOC: CAT 09:25
DX: D38.0 Neoplasm of uncertain behavior of larynx (principal); J38.3 Other diseases of vocal cords; M47.9 Spondylosis, unspecified; Z98.1 Arthrodesis status; J31.0 Chronic rhinitis
CPT/HCPCS: 36415; 70490; 82565; 84520

== ENCOUNTER 2019-11-01 13:42 | Outpatient (CLI) | payer MEDICARE, OTHER ==
[2019-11-01 14:16] LABS: HEMATOCRIT 30.2 % (37.0-47.0); HEMOGLOBIN 10.1 G/DL (12.0-16.0); MEAN CORPUSCULAR VOLUME 96 FL (80-99); PLATELET COUNT 198 K/UL (150-450); RED BLOOD COUNT 3.13 M/UL (4.20-5.40); RED CELL DISTRIBUTION WIDTH 12.3 % (11.6-14.8); WHITE BLOOD COUNT 8.4 K/UL (4.8-10.8)
[2019-11-01 14:55] LABS: ALANINE AMINOTRANSFERASE 21 U/L (12-78); ALBUMIN 3.4 G/DL (3.4-5.0); ALBUMIN/GLOBULIN RATIO 0.8 (1.0-2.7); ALKALINE PHOSPHATASE 102 U/L (46-116); ANION GAP 10 mmol/L (5-15); ASPARTATE AMINO TRANSFERASE 23 U/L (15-37); BILIRUBIN,TOTAL 0.2 MG/DL (0.2-1.0); BLOOD UREA NITROGEN 46 mg/dL (7-18); CALCIUM 8.9 MG/DL (8.5-10.1); CARBON DIOXIDE 22 MMOL/L (21-32); CHLORIDE 109 MMOL/L (98-107); CREATININE 3.8 MG/DL (0.55-1.30); POTASSIUM 5.5 MMOL/L (3.5-5.1); SODIUM 141 MMOL/L (136-145)
== END 2019-11-01 15:42 | disposition home or self-care (01) ==
LOC: LAB 13:42
DX: R53.83 Other fatigue (principal); R25.2 Cramp and spasm; R06.02 Shortness of breath; R42 Dizziness and giddiness; E04.1 Nontoxic single thyroid nodule
CPT/HCPCS: 36415; 80053; 83880; 85007; 85025

== ENCOUNTER 2019-11-04 15:29 | Inpatient (IN) | payer MEDICARE, OTHER ==
[~2019-11-04] VITALS: Ht 167.6 cm; Wt 79.8 kg
[2019-11-04 16:00] VITALS: BP 167/80
--- NOTE | 2019-11-04 16:00 | NUR ---
ED Nurse Note: Pt walked into ED for SOB bilateral exp wheezing. She is a patient of Dr Nash. She has no respiratory history. Pt is alert and orientedx4, ambulatory. Pt is set up in isolation room and set up to monitor.
--- NOTE | 2019-11-04 16:12 | Diagnostic Imaging Report ---
Indication: Shortness of breath Technique: XRAY Chest 1v Comparison: 11/02/2017 Findings: Heart size and mediastinal contours are within normal limits for AP technique and stable compared to the prior exam. Atherosclerotic calcifications again noted in the aorta. Unchanged very mild linear atelectasis or scarring at the periphery of the right base. Otherwise there is no focal airspace consolidation, pneumothorax or pleural effusion. Degenerative changes in the spine. Osseous structures demonstrate no acute abnormality. Impression: No radiographic evidence of acute cardiopulmonary disease.
[2019-11-04] MEDS ORDERED: Albuterol 90mcg Inhaler 8gm INH PRN (16:30)
--- NOTE | 2019-11-04 16:32 | Emergency Room Report ---
History of Present Illness General Chief Complaint: Dyspnea/Respdistress Source: Patient (Tashia Smart) Present Illness HPI 74 YO Female presents to the emergency department sent in by primary care doctor for evaluation of progressive shortness of breath x3 days. She reports exacerbated when she has physical exertion or persistent talking. PT. reports poor kidney function and states she was just seen by her PCP 3 days ago for her symptoms and was told everything was normal and was not Rx'd any new medications. Pt. reports "having her heart checked out". Pt. reports mild chronic swelling of bilateral legs secondary to renal impairment for which she regularly utilizes compression stockings for. Patient denies significant increase in lower extremity swelling/edema. Patient reports slight intermittent cough denies mucus production, sore throat, fevers or chills. Denies recent travel. Denies contact with persons who have tested positive for or are under investigation/quarantine for COVID-19. Denies CP, Palpitations, LOC, AMS, dizziness, Changes in Vision, Sensation, paresthesias, or a sudden severe headache. She reports being a's former smoker. 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: No (Tashia Smart) Patient History Past Medical History: see triage record, HTN, renal disease Past Surgical History: none Pertinent Family History: none Now: No Reviewed Nursing Documentation: PMH: Agreed; PSxH: Agreed (Tashia Smart) Nursing Documentation-PMH Past Medical History: No History, Except For Hx Cardiac Problems: Yes Hx Hypertension: Yes Hx Cancer: No Hx Gastrointestinal Problems: No Hx Neurological Problems: Yes Hx Weakness: Yes (Tashia Smart) Review of Systems All Other Systems: negative except mentioned in HPI (Tashia Smart) Physical Exam Vital Signs Date Time Temp Pulse Resp B/P (MAP) Pulse Ox O2 Delivery O2 Flow Rate FiO2 11/04/19 15:42 99.0 76 22 176/82 (113) 95 Room Air Sp02 EP Interpretation: reviewed, normal General Appearance: alert, GCS 15, moderate distress Head: normocephalic, atraumatic Eyes: bilateral eye normal inspection, bilateral eye PERRL ENT: hearing grossly normal, normal voice Neck: full range of motion, other - auditory stridor Respiratory: chest non-tender, stridor, wheezing - Bilaterally in upper airways , other - Pt. with increased respiratory effort and difficulty speaking full sentences Cardiovascular #1: regular rate, rhythm, no edema - bilateral non-pitting Gastrointestinal: non tender, soft Musculoskeletal: back normal, normal range of motion, gait/station normal, non- tender Neurologic: alert, motor strength/tone normal, oriented x3, sensory intact, responsive, speech normal Psychiatric: judgement/insight normal, anxious Skin: normal color - no perioral cyanosis (Tashia Smart) Medical Decision Making PA Attestation Dr. Durbin is my supervising Physician whom patient management has been discussed with. (Tashia Smart) PA Attestation I participated in the care of this patient along with KASIE Davila Briefly, this is a 74-year-old female presenting for evaluation of shortness of breath of one-week duration. She has no formal history of COPD/emphysema but she does have an extensive smoking history. Has a history of renal failure and has had elevated BNP levels at previous admissions. No formal diagnosis of CHF. Patient has audible wheezing and was treated with steroids, Lasix, albuterol. There was no hypoxia while in the emergency department. Patient reports a cough and some congestion. Will screen for COVID-19 admit to isolation. Admitted to her PMD, Dr. Nash (Kelton Durbin MD) Diagnostic Impression: Primary Impression: Respiratory distress Additional Impression: Hyperkalemia ER Course 74 YO Female presents to the emergency department sent in by primary care doctor for evaluation of progressive shortness of breath x3 days. She reports exacerbated when she has physical exertion or persistent talking. PT. reports poor kidney function and states she was just seen by her PCP 3 days ago for her symptoms and was told everything was normal and was not Rx'd any new medications. Pt. reports "having her heart checked out". Pt. reports mild chronic swelling of bilateral legs secondary to renal impairment for which she regularly utilizes compression stockings for. Patient denies significant increase in lower extremity swelling/edema. Patient reports slight intermittent cough denies mucus production, sore throat, fevers or chills. Denies recent travel. Denies contact with persons who have tested positive for or are under investigation/quarantine for COVID-19. Denies CP, Palpitations, LOC, AMS, dizziness, Changes in Vision, Sensation, paresthesias, or a sudden severe headache. She reports being a's former smoker. Ddx considered but are not limited to AK, PE, atelectasis, CHF, asthma, anxiety , COVID-19, ARDS just to name a few Vital signs: are WNL, pt. is afebrile H&PE are most consistent with visible respiratory distress, the patient is tachypneic with increased respiratory effort noted. Wheezing is audible without auscultation. ORDERS: - pt. placed in droplet isolation precautions as a PUI for COVID-19 -EKG: NSR 71 BPM - CBC: leukocytopenia - CMP: Potassium 5.6 cr. 3.5 -Troponin: 0.00 -BNP: elevated 2659 CXR: WNL, persistent lung scaring in the right lower lobe. -VBG: WNL ED INTERVENTIONS: -Albuterol MDI -Solu MEdrol - Dextrose and Insulin - 40mg IV Lasix ( per Dr. Nash request) This patient was evaluated in the context of the global COVID-19 pandemic, which necessitated consideration that the patient might be at risk for infection with the SARS-COV-2 virus that causes COVID-19. Institutional protocols and algorithms that pertaining to the evaluation of patients at risk for COVID-19 are in a state of rapid change based on information released by multiple regulatory bodies including the CDC and federal and state organizations. These policies and algorithms were followed during the patient' s care in the emergency department DISPOSITION: at this time pt. will be admitted to Dr. Nash for Respiratory distress. Dr. Nash agreed to admit the pt. and to continue pt. care management. Labs Test 11/04/19 17:36 White Blood Count 8.8 K/UL (4.8-10.8) Red Blood Count 3.24 M/UL (4.20-5.40) Hemoglobin 10.3 G/DL (12.0-16.0) Hematocrit 33.7 % (37.0-47.0) Mean Corpuscular Volume 104 FL (80-99) Mean Corpuscular Hemoglobin 31.6 PG (27.0-31.0) Mean Corpuscular Hemoglobin Concent 30.4 G/DL (32.0-36.0) Red Cell Distribution Width 13.2 % (11.6-14.8) Platelet Count 214 K/UL (150-450) Mean Platelet Volume 8.2 FL (6.5-10.1) Neutrophils (%) (Auto) 57.6 % (45.0-75.0) Lymphocytes (%) (Auto) 27.6 % (20.0-45.0) Monocytes (%) (Auto) 8.9 % (1.0-10.0) Eosinophils (%) (Auto) 5.1 % (0.0-3.0) Basophils (%) (Auto) 0.7 % (0.0-2.0) Sodium Level 139 MMOL/L (136-145) Potassium Level 5.6 MMOL/L (3.5-5.1) Chloride Level 107 MMOL/L (98-107) Carbon Dioxide Level 24 MMOL/L (21-32) Anion Gap 9 mmol/L (5-15) Blood Urea Nitrogen 48 mg/dL (7-18) Creatinine 3.5 MG/DL (0.55-1.30) Estimat Glomerular Filtration Rate 15.5 mL/min (>60) Glucose Level 96 MG/DL (74-106) Calcium Level 8.9 MG/DL (8.5-10.1) Total Bilirubin 0.2 MG/DL (0.2-1.0) Aspartate Amino Transf (AST/SGOT) 22 U/L (15-37) Alanine Aminotransferase (ALT/SGPT) 22 U/L (12-78) Alkaline Phosphatase 106 U/L (46-116) Troponin I 0.000 ng/mL (0.000-0.056) Pro-B-Type Natriuretic Peptide 2659 pg/mL (0-125) Total Protein 7.3 G/DL (6.4-8.2) Albumin 3.4 G/DL (3.4-5.0) Globulin 3.9 g/dL Albumin/Globulin Ratio 0.9 (1.0-2.7) (Tashia Smart) EKG Diagnostic Results EP Interpretation: Dr. Durbin Rate: normal - 71 Rhythm: NSR ST Segments: no acute changes ASA given to the pt in ED: No PA Scribe Text This Interpretation was scribed by KASIE Smart. (Tashia Smart) Chest X-Ray Diagnostic Results Chest X-Ray Diagnostic Results : Chest X-Ray Ordered: Yes # of Views/Limited/Complete: 1 View Indication: Shortness of Breath EP Interpretation: Yes PA Xray: Interpretation reviewed, by supervising MD, and agrees with findings. Interpretation: no consolidation, no effusion, no pneumothorax, no acute cardiopulmonary disease Impression: No acute disease Electronically Signed by: Tashia Smart PA-C (Tashia Smart) Last Vital Signs Date Time Temp Pulse Resp B/P (MAP) Pulse Ox O2 Delivery O2 Flow Rate FiO2 11/04/19 15:42 99.0 76 22 176/82 (113) 95 Room Air (Tashia Smart) Disposition: ADMITTED INPATIENT Condition: Serious Referrals: Danny Nash MD (PCP) Tahsia Smart November 04, 2019 16:32 Kelton Durbin MD November 04, 2019 19:27
--- NOTE | 2019-11-04 16:50 | NUR ---
ED Nurse Note: Multiple RNs have attempted IV nad lab draw unsuccessfully. KASIE Smart aware.
--- NOTE | 2019-11-04 17:30 | NUR ---
ED Nurse Note: IV est by Chapo GIORDANO. Blood labs sent to lab.
[2019-11-04 17:54] LABS: BASOPHILS % (AUTO) 0.7 % (0.0-2.0); EOSINOPHILS % (AUTO) 5.1 % (0.0-3.0); HEMATOCRIT 33.7 % (37.0-47.0); HEMOGLOBIN 10.3 G/DL (12.0-16.0); LYMPHOCYTES % (AUTO) 27.6 % (20.0-45.0); MEAN CORPUSCULAR VOLUME 104 FL (80-99); MONOCYTES % (AUTO) 8.9 % (1.0-10.0); NEUTROPHILS % (AUTO) 57.6 % (45.0-75.0); PLATELET COUNT 214 K/UL (150-450); RED BLOOD COUNT 3.24 M/UL (4.20-5.40); RED CELL DISTRIBUTION WIDTH 13.2 % (11.6-14.8); WHITE BLOOD COUNT 8.8 K/UL (4.8-10.8)
[2019-11-04 18:06] LABS: ANION GAP 9 mmol/L (5-15); BLOOD UREA NITROGEN 48 mg/dL (7-18); CALCIUM 8.9 MG/DL (8.5-10.1); CARBON DIOXIDE 24 MMOL/L (21-32); CHLORIDE 107 MMOL/L (98-107); CREATININE 3.5 MG/DL (0.55-1.30); POTASSIUM 5.6 MMOL/L (3.5-5.1); SODIUM 139 MMOL/L (136-145)
[2019-11-04 18:17] LABS: ALANINE AMINOTRANSFERASE 22 U/L (12-78); ALBUMIN 3.4 G/DL (3.4-5.0); ALBUMIN/GLOBULIN RATIO 0.9 (1.0-2.7); ALKALINE PHOSPHATASE 106 U/L (46-116); ASPARTATE AMINO TRANSFERASE 22 U/L (15-37); BILIRUBIN,TOTAL 0.2 MG/DL (0.2-1.0)
[2019-11-04 18:20] VITALS: BP 154/76
[2019-11-04] MEDS ORDERED: Insulin Human Regular 100units/ml 3ml IV ONE (18:30)
--- NOTE | 2019-11-04 18:30 | NUR ---
ED Nurse Note: Report given to Olivia OCONNELL.
--- NOTE | 2019-11-04 18:46 | NUR ---
ED Nurse Note: COVID test sent. Pt refused MRSA, CRE, VRE.
--- NOTE | 2019-11-04 19:00 | NUR ---
ED Nurse Note: Pt transferred to tele floor with RN and tech on monitor.
--- NOTE | 2019-11-04 19:15 | NUR ---
HAND-OFF: Report given to KOURTNEY Ferguson. Endorsed plan of care.
--- NOTE | 2019-11-04 19:35 | NUR ---
NURSE NOTES: Received report from KOURTNEY Larson. Patient transferred from E. via [facility] to room 214-2. Patient is awake, alert and oriented x 3-4. Oriented to room and telemetry unit. On nasal cannula @ 2Lpm with no shortness or difficulty of breathing reported, saturating 99%. Patient is ambulatory and continent. IV site is on left AC g-22 saline lock that is patent and intact. Safety measures are in placed, bed in lowest and lock position. Will call primary doctor to get admission orders.
[2019-11-04 20:00] VITALS: BP 142/64
[2019-11-04] MEDS ORDERED: Albuterol ud Inhalation HHN PRN (21:45)
[2019-11-04] MEDS: Solu-MEDROL 125mg Inj IVP SCH (22:23)
[2019-11-04] MEDS: Heparin 5000 units/ml inj SUBQ SCH (22:24)
[2019-11-05] VITALS: BP 115/59
[2019-11-05] MEDS ORDERED: cefTRIAXone 1 GM in D5W 55 ML IVPB SCH (03:00)
[2019-11-05 04:00] VITALS: BP 140/64
[2019-11-05] MEDS ORDERED: Levofloxacin 500mg tab ORAL SCH (06:00)
[2019-11-05 06:45] LABS: HEMATOCRIT 29.9 % (37.0-47.0); HEMOGLOBIN 10.1 G/DL (12.0-16.0); MEAN CORPUSCULAR VOLUME 94 FL (80-99); PLATELET COUNT 193 K/UL (150-450); RED BLOOD COUNT 3.19 M/UL (4.20-5.40); RED CELL DISTRIBUTION WIDTH 11.7 % (11.6-14.8); WHITE BLOOD COUNT 6.1 K/UL (4.8-10.8)
--- NOTE | 2019-11-05 07:00 | NUR ---
NURSE NOTES: Received hand-off report from KOURTNEY Ferguson. Patient was in bed, resting and requested fo warm food. Resident still refused to eat even after encouragement and patient education. Left antecubital IV 20g flushing, intact, absent of redness. Resident states "I am breathing a lot better than before." Bed in low and locked position. Call light within reach.
[2019-11-05 07:10] LABS: ALANINE AMINOTRANSFERASE 23 U/L (12-78); ALBUMIN/GLOBULIN RATIO 0.8 (1.0-2.7); ALKALINE PHOSPHATASE 96 U/L (46-116); ANION GAP 12 mmol/L (5-15); ASPARTATE AMINO TRANSFERASE 25 U/L (15-37); BILIRUBIN,TOTAL 0.1 MG/DL (0.2-1.0); BLOOD UREA NITROGEN 56 mg/dL (7-18); CALCIUM 8.8 MG/DL (8.5-10.1); CARBON DIOXIDE 21 MMOL/L (21-32); CHLORIDE 105 MMOL/L (98-107); CREATININE 3.7 MG/DL (0.55-1.30); POTASSIUM 5.5 MMOL/L (3.5-5.1); SODIUM 138 MMOL/L (136-145)
--- NOTE | 2019-11-05 07:31 | NUR ---
HAND-OFF: Report given to KOURTNEY Hamilton. Patient is in stable condition, no complaints of pain at this time. Plan of care endorsed.
[2019-11-05 08:00] VITALS: BP 156/92
[2019-11-05] MEDS: Solu-MEDROL 125mg Inj IVP SCH ×2 (09:19→20:49)
[2019-11-05] MEDS: Heparin 5000 units/ml inj SUBQ SCH ×2 (09:22→20:55)
--- NOTE | 2019-11-05 10:37 | Consultation ---
Consult Note Consult Note HPI 74 YO Female presents to the emergency department for worsening and progressive shortness of breath x3 days with worsening fluid retention. notes dyspnea with any activity and even talking. worsening kidney function and not improved with PO lasix. Pt. reports "having her heart checked out". Pt. reports mild chronic swelling of bilateral legs secondary to renal impairment for which she regularly utilizes compression stockings for. Patient denies significant increase in lower extremity swelling/edema. Patient referred to renal but never went.. Denies contact with persons who have tested positive for or are under investigation/quarantine for COVID-19. Denies CP, Palpitations, LOC, AMS , dizziness, Changes in Vision, Sensation, paresthesias, or a sudden severe headache. prior smoker. Allergies: SULFA (SULFONAMIDE ANTIBIOTICS) (Unverified Allergy, Severe, SWELLING, ) AMPICILLIN (Unverified Allergy, Intermediate, ITCHING, 11/05/17) PMH hypertension CRI leg edema chronic arthritis and pain anxiety elevated cholesterol MEDS and ALLERGIES reviewed SOCIAL- prior smoker; lives alone; no ETOH FHX - NC PHYSICAL WDWN NAD reduced breath sounds bilaterally with noted rhonchi [id number] without MRG NABS nontender no HSM no CC significant nonfocal Laboratory Tests Test 11/04/19 17:36 11/04/19 18:56 11/05/19 05:30 White Blood Count 8.8 K/UL (4.8-10.8) 6.1 K/UL (4.8-10.8) Red Blood Count 3.24 M/UL (4.20-5.40) L 3.19 M/UL (4.20-5.40) L Hemoglobin 10.3 G/DL (12.0-16.0) L 10.1 G/DL (12.0-16.0) L Hematocrit 33.7 % (37.0-47.0) L 29.9 % (37.0-47.0) L Mean Corpuscular Volume 104 FL (80-99) H 94 FL (80-99) # Mean Corpuscular Hemoglobin 31.6 PG (27.0-31.0) H 31.7 PG (27.0-31.0) H Mean Corpuscular Hemoglobin Concent 30.4 G/DL (32.0-36.0) L 33.9 G/DL (32.0-36.0) Red Cell Distribution Width 13.2 % (11.6-14.8) 11.7 % (11.6-14.8) Platelet Count 214 K/UL (150-450) 193 K/UL (150-450) Mean Platelet Volume 8.2 FL (6.5-10.1) 6.7 FL (6.5-10.1) Neutrophils (%) (Auto) 57.6 % (45.0-75.0) % (45.0-75.0) Lymphocytes (%) (Auto) 27.6 % (20.0-45.0) % (20.0-45.0) Monocytes (%) (Auto) 8.9 % (1.0-10.0) % (1.0-10.0) Eosinophils (%) (Auto) 5.1 % (0.0-3.0) H % (0.0-3.0) Basophils (%) (Auto) 0.7 % (0.0-2.0) % (0.0-2.0) Sodium Level 139 MMOL/L (136-145) 138 MMOL/L (136-145) Potassium Level 5.6 MMOL/L (3.5-5.1) H 5.5 MMOL/L (3.5-5.1) H Chloride Level 107 MMOL/L (98-107) 105 MMOL/L (98-107) Carbon Dioxide Level 24 MMOL/L (21-32) 21 MMOL/L (21-32) Anion Gap 9 mmol/L (5-15) 12 mmol/L (5-15) Blood Urea Nitrogen 48 mg/dL (7-18) H 56 mg/dL (7-18) H Creatinine 3.5 MG/DL (0.55-1.30) H 3.7 MG/DL (0.55-1.30) H Estimat Glomerular Filtration Rate 15.5 mL/min (>60) 14.5 mL/min (>60) Glucose Level 96 MG/DL (74-106) 124 MG/DL (74-106) H Calcium Level 8.9 MG/DL (8.5-10.1) 8.8 MG/DL (8.5-10.1) Total Bilirubin 0.2 MG/DL (0.2-1.0) 0.1 MG/DL (0.2-1.0) L Aspartate Amino Transf (AST/SGOT) 22 U/L (15-37) 25 U/L (15-37) Alanine Aminotransferase (ALT/SGPT) 22 U/L (12-78) 23 U/L (12-78) Alkaline Phosphatase 106 U/L (46-116) 96 U/L (46-116) Troponin I 0.000 ng/mL (0.000-0.056) 0.000 ng/mL (0.000-0.056) Pro-B-Type Natriuretic Peptide 2659 pg/mL (0-125) H 3576 pg/mL (0-125) H Total Protein 7.3 G/DL (6.4-8.2) 7.0 G/DL (6.4-8.2) Albumin 3.4 G/DL (3.4-5.0) 3.0 G/DL (3.4-5.0) L Globulin 3.9 g/dL 4.0 g/dL Albumin/Globulin Ratio 0.9 (1.0-2.7) L 0.8 (1.0-2.7) L Venous Blood pH 7.238 Venous Blood Partial Pressure CO2 45.8 Venous Blood Partial Pressure O2 31.4 Venous Blood HCO3 19.1 Venous Blood Total Carbon Dioxide 45.8 Venous Blood Base Excess -8.0 Venous Blood Carboxyhemoglobin 0.9 % (0.5-1.5) Methemoglobin 0.7 Neutrophils % (Manual) Pending Lymphocytes % (Manual) Pending Platelet Estimate Pending Platelet Morphology Pending IMPRESSION respiratory distress COPD with exacerbation fluid overload CRI hypertension elevated cholesterol rule out COVID PLAN care as is on isolation diurese ID to see cards noted recent echo with normal EF venous US negative recently diurese assess renal function and respiratory symptoms iv steroids and antibiotics impression, plan, and exam edited and reviewed in detail care discussed with Danny Giraldo MD November 05, 2019 10:37
--- NOTE | 2019-11-05 10:37 | Pulmonology Progress Note ---
Subjective Allergies: Coded Allergies: SULFA (SULFONAMIDE ANTIBIOTICS) (Unverified Allergy, Severe, SWELLING, ) AMPICILLIN (Unverified Allergy, Intermediate, ITCHING, 11/05/17) Objective Last 24 Hour Vital Signs Date Time Temp Pulse Resp B/P (MAP) Pulse Ox O2 Delivery O2 Flow Rate FiO2 11/05/19 08:00 98.0 92 20 156/92 (113) 97 11/05/19 04:00 97.6 78 25 140/64 (89) 98 11/05/19 04:00 71 11/05/19 00:00 78 11/05/19 00:00 98.2 70 21 115/59 (77) 98 11/04/19 23:00 Nasal Cannula 2.0 11/04/19 20:00 97.9 75 23 142/64 (90) 98 11/04/19 20:00 74 11/04/19 18:50 98.8 87 17 142/87 99 Nasal Cannula 2.0 11/04/19 18:20 99.0 76 20 154/76 100 Nasal Cannula 2.0 11/04/19 16:00 99.0 76 21 167/80 100 Room Air 11/04/19 16:00 76 21 Room Air 100 11/04/19 15:42 99.0 76 22 176/82 (113) 95 Room Air Intake and Output 11/04/19 11/05/19 19:00 07:00 Intake Total 0 ml Balance 0 ml Intake Oral 0 ml Laboratory Tests 11/04/19 17:36: White Blood Count 8.8, Red Blood Count 3.24L, Hemoglobin 10.3L, Hematocrit 33.7L , Mean Corpuscular Volume 104H, Mean Corpuscular Hemoglobin 31.6H, Mean Corpuscular Hemoglobin Concent 30.4L, Red Cell Distribution Width 13.2, Platelet Count 214, Mean Platelet Volume 8.2, Neutrophils (%) (Auto) 57.6, Lymphocytes (%) (Auto) 27.6, Monocytes (%) (Auto) 8.9, Eosinophils (%) (Auto) 5.1H, Basophils (%) (Auto) 0.7, Sodium Level 139, Potassium Level 5.6H, Chloride Level 107, Carbon Dioxide Level 24, Anion Gap 9, Blood Urea Nitrogen 48H, Creatinine 3.5H, Estimat Glomerular Filtration Rate 15.5, Glucose Level 96 , Calcium Level 8.9, Total Bilirubin 0.2, Aspartate Amino Transf (AST/SGOT) 22, Alanine Aminotransferase (ALT/SGPT) 22, Alkaline Phosphatase 106, Troponin I 0.000, Pro-B-Type Natriuretic Peptide 2659H, Total Protein 7.3, Albumin 3.4, Globulin 3.9, Albumin/Globulin Ratio 0.9L 11/04/19 18:56: Venous Blood pH 7.238, Venous Blood Partial Pressure CO2 45.8, Venous Blood Partial Pressure O2 31.4, Venous Blood HCO3 19.1, Venous Blood Total Carbon Dioxide 45.8, Venous Blood Base Excess -8.0, Venous Blood Carboxyhemoglobin 0.9 , Methemoglobin 0.7 11/05/19 05:30: White Blood Count 6.1, Red Blood Count 3.19L, Hemoglobin 10.1L, Hematocrit 29.9L , Mean Corpuscular Volume 94#, Mean Corpuscular Hemoglobin 31.7H, Mean Corpuscular Hemoglobin Concent 33.9, Red Cell Distribution Width 11.7, Platelet Count 193, Mean Platelet Volume 6.7, Neutrophils (%) (Auto) , Lymphocytes (%) ( Auto) , Monocytes (%) (Auto) , Eosinophils (%) (Auto) , Basophils (%) (Auto) , Sodium Level 138, Potassium Level 5.5H, Chloride Level 105, Carbon Dioxide Level 21, Anion Gap 12, Blood Urea Nitrogen 56H, Creatinine 3.7H, Estimat Glomerular Filtration Rate 14.5, Glucose Level 124H, Calcium Level 8.8, Total Bilirubin 0.1L, Aspartate Amino Transf (AST/SGOT) 25, Alanine Aminotransferase ( ALT/SGPT) 23, Alkaline Phosphatase 96, Troponin I 0.000, Pro-B-Type Natriuretic Peptide 3576H, Total Protein 7.0, Albumin 3.0L, Globulin 4.0, Albumin/Globulin Ratio 0.8L, Neutrophils % (Manual) [Pending], Lymphocytes % (Manual) [Pending], Platelet Estimate [Pending], Platelet Morphology [Pending] Current Medications Medications (Trade) Dose Ordered Sig/Konstantin Route PRN Reason Start Time Stop Time Status Last Admin Dose Admin Acetaminophen (Tylenol) 650 mg Q4H PRN ORAL Mild Pain (Pain Scale 1-3) 11/04/19 21:45 12/04/19 21:44 11/05/19 00:17 Al Hydroxide/Mg Hydroxide (Mylanta) 30 ml Q4H PRN ORAL Constipation 11/05/19 05:00 12/05/19 04:59 Albuterol Sulfate (Proventil MDI) 2 puff Q4H PRN INH Shortness of Breath 11/04/19 16:30 02/02/20 16:29 11/04/19 17:06 Albuterol Sulfate (Proventil) 2.5 mg Q4H PRN HHN Shortness of Breath 11/04/19 21:45 11/09/19 21:44 Heparin Sodium (Porcine) (Heparin 5000 units/ml) 5,000 units EVERY 12 HOURS SUBQ 11/04/19 21:45 12/19/19 21:44 11/05/19 09:22 Levofloxacin (Levaquin) 250 mg Q48H ORAL 11/07/19 09:00 11/14/19 08:59 Methylprednisolone Sodium Succinate (Solu-MEDROL) 60 mg EVERY 12 HOURS IVP 11/04/19 21:45 02/02/20 21:44 11/05/19 09:19 Pantoprazole (Protonix) 40 mg DAILY ORAL 11/05/19 09:00 12/05/19 08:59 11/05/19 09:18 Danny Nash MD November 05, 2019 10:37
--- NOTE | 2019-11-05 10:43 | NUR ---
NURSE NOTES:Contacted Dr Nash as patient is complaining of arthritic and generalized pain, also her BP is high with no PRN or scheduled BP medications. Patient also requesting valium. notified.
--- NOTE | 2019-11-05 11:06 | NUR ---
NURSE NOTES:Dr martinez gave TO/RB orders for valium 5mg BID PO PRN anxiety, Clonidine 0.1mg PO Q4HR PRN for SBP above 150, 30mg kayexalate PO once, Tylenol 650mg Q4 PRN pain/fever and BMP for tomorrow AM.
[2019-11-05] MEDS: Sodium Polystyrene Sulfonate 15gm Powder ORAL SCH ×2 (11:44→11:45)
[2019-11-05 12:00] VITALS: BP 192/96
--- NOTE | 2019-11-05 13:31 | Diagnostic Imaging Report ---
EXAM: XR Chest, 1 View CLINICAL HISTORY: WEAK TECHNIQUE: Frontal view of the chest. COMPARISON: Chest x-rays dated 11/04/19, 11/03/19, CT chest dated 06/09/18 FINDINGS: Lungs: Unremarkable. The lungs appear clear. No focal consolidation. Pleural space: Unremarkable. The costophrenic angles are sharp. No visible pneumothorax. Heart: Unremarkable. No cardiomegaly. Mediastinum: Unremarkable. Bones/joints: Unremarkable. Vasculature: Atherosclerotic calcifications are noted within the aortic arch. Tubes, lines and devices: Telemetry leads overlie the thorax. IMPRESSION: No acute findings.
[2019-11-05 16:00] VITALS: BP 154/85
--- NOTE | 2019-11-05 19:25 | NUR ---
HAND-OFF: Report given to KOURTNEY Ferguson.
--- NOTE | 2019-11-05 19:43 | NUR ---
NURSE NOTES: Received report from KOURTNEY Hamilton. Patient is awake, alert and oriented x 3-4. On nasal cannula @ 2Lpm with no shortness or difficulty of breathing reported, saturating 95%. On a cardiac diet-instructed and amenable. occupational health and safety adviser is in placed, shows sinus rhythm with no chest pain at this time. Patient is ambulatory but unsteady and she's continent. IV site is on left AC g-22 saline lock that is patent and intact. Safety measures are in placed, bed in lowest and lock position. Call light and bedside table within reach, instructed to call for any assistance needed.
[2019-11-05 20:00] VITALS: BP 148/77
--- NOTE | 2019-11-05 21:29 | Consultation ---
DATE OF CONSULTATION: 11/05/2019 INFECTIOUS DISEASES CONSULTATION REFERRING PHYSICIAN: Danny Nash M.D. REASON FOR CONSULTATION: Rule out COVID-19 pneumonia. HISTORY OF PRESENTING ILLNESS: This is a 74-year-old lady with history of hypertension and renal failure who came in with increasing shortness of breath. She also has poor kidney function. She also has bilateral leg edema. There is a concern for COVID-19 pneumonia, and an Infectious Diseases consultation has been obtained for antibiotics. PAST MEDICAL HISTORY: 1. History of hypertension. 2. History of coronary artery disease. 3. History of renal disease. SOCIAL HISTORY: She used to be a smoker. She does not smoke anymore. She does not drink alcohol or use drugs. FAMILY HISTORY: Noncontributory. REVIEW OF SYSTEMS: RESPIRATORY: No fever or chills. She does have a dry cough. She has shortness of breath. No chest pain. CARDIAC: No chest pain. No palpitations. No dizziness. No syncope. GASTROINTESTINAL: No nausea. No vomiting. No abdominal pain or diarrhea. MEDICATIONS: As an inpatient, she is on Levaquin, Protonix, Mylanta, Solu-Medrol, subcutaneous heparin, Tylenol, and albuterol. ALLERGIES: 1. Ampicillin. 2. Sulfa. PHYSICAL EXAMINATION: VITAL SIGNS: Temperature of 98, T-max of 99, pulse of 92, respiratory rate of rate 20, blood pressure 156/92, and O2 saturation of 97% on 2 liters of oxygen. Examination deferred due to possibility of COVID-19. LABORATORY AND DIAGNOSTIC DATA: White count 6.1, hemoglobin 10.1, hematocrit 9.9, MCV 94, platelet count of 193, with neutrophils of 89%. Sodium 138, potassium 5.5, chloride 105, bicarb 21, BUN 56, creatinine 3.7, glucose 124, and calcium 8.8. Total bilirubin 0.1, AST 25, ALT 23, alkaline phosphatase 96. Troponin 0. Beta-natriuretic peptide 3576. Total protein of 7, albumin of 3. Chest x-ray was unremarkable. ASSESSMENT: This is a 74-year-old lady with history of hypertension and renal disease who comes in with shortness of breath, cough, and bilateral leg edema and would like to rule out: 1. COVID-19 pneumonia. 2. Hypertension. 3. Renal failure. PLAN: 1. Continue Levaquin for now. 2. Continue isolation. 3. We will follow up COVID-19 test results. I would like to thank, Dr. Nash, for this consultation. [place] Betty Peraza DR: Fabio JOB#: [id number] CC: Danny Nash M.D.; Fax#: [phone]
[2019-11-06] VITALS: BP 164/86
[2019-11-06] MEDS: Tylenol #3 tab (300mg/30mg) ORAL PRN ×3 (00:26→23:04)
[2019-11-06 04:00] VITALS: BP 153/81
--- NOTE | 2019-11-06 04:44 | Progress Note ---
DATE: 11/05/2019 CARDIOLOGY PROGRESS NOTE SUBJECTIVE: The patient states she feels much better after getting diuresed yesterday. She is less short of breath. She still does not feel 100% normal. PHYSICAL EXAMINATION: VITAL SIGNS: Blood pressure 156/92, heart rate 92, respirations 20, and afebrile. LUNGS: Diminished breath sounds. No wheezing. CARDIAC: Regular rhythm and rate. Normal S1 and S2 with a 1/6 systolic murmur at apex. ABDOMEN: Soft and nontender. EXTREMITIES: Trace edema. LABORATORY DATA: Chest x-ray with no acute process. White count 6.1 and hemoglobin 10.1. Sodium 138, potassium 5.5, bicarb 21, BUN 56, and creatinine 3.7. Pro-natriuretic peptide 3500. Troponin 0. IMPRESSION: 1. Acute on chronic renal failure. 2. Volume overload. 3. Mild protein-calorie malnutrition. 4. Hyperkalemia. 5. Anemia of chronic kidney disease. 6. Possible COVID-19. PLAN: 1. Empiric antimicrobials. 2. Follow up COVID-19 results. 3. Hold additional diuresis. 4. Renal workup to be considered. 5. Review echocardiogram and venous duplex scan. 6. Rule out source of pulmonary emboli. Darío Abrams M.D. : SHEILA JOB#: [id number] CC:
--- NOTE | 2019-11-06 07:53 | NUR ---
HAND-OFF: Report given to KOURTNEY Meek. Patient is awake, on stable condition, no complaints of pain at this time. Plan of care endorsed.
--- NOTE | 2019-11-06 08:00 | NUR ---
NURSE NOTES: Report received from Ruth OCONNELL. Patient is observed in bed, awake, alert, oriented, and able to make needs known. Respiratory even and unlabored. IV site is asymptomatic, patent, and intact. Patient denies pain at this time. Bed is in lowest position with side rails up x2 and brakes are engaged. Bedside commode is within reach. Encouraged patient to use call light when in need of assitance, pt verbalized undertanding. Will continue to monitor.
[2019-11-06 08:51] VITALS: BP 167/93
[2019-11-06] MEDS: Solu-MEDROL 125mg Inj IVP SCH (09:01)
[2019-11-06] MEDS: Heparin 5000 units/ml inj SUBQ SCH ×2 (09:04→20:29)
[2019-11-06 09:10] LABS: ANION GAP 16 mmol/L (5-15); BLOOD UREA NITROGEN 57 mg/dL (7-18); CARBON DIOXIDE 19 MMOL/L (21-32); CHLORIDE 105 MMOL/L (98-107); CREATININE 3.5 MG/DL (0.55-1.30); POTASSIUM 4.4 MMOL/L (3.5-5.1); SODIUM 140 MMOL/L (136-145)
--- NOTE | 2019-11-06 11:25 | Nephrology Progress Note ---
Assessment/Plan Assessment/Plan: A/P 1) ELSA on CKD 4- continue to hold lasix - Cr down to 3.5 - baseline Cr 2.6-3 - progressive decline eGFR over past few years - 24 hr urinary protein - will eventually need a renal biopsy 2) SOB- EF NL CXR clear R/O COVID 3) Hyperk+ resolved Subjective Date patient seen: November 06, 2019 Time patient seen: 11:22 ROS Limited/Unobtainable: Yes Allergies: Coded Allergies: SULFA (SULFONAMIDE ANTIBIOTICS) (Unverified Allergy, Severe, SWELLING, ) AMPICILLIN (Unverified Allergy, Intermediate, ITCHING, 11/05/17) Subjective Patient in isolation Objective Last 24 Hour Vital Signs Date Time Temp Pulse Resp B/P (MAP) Pulse Ox O2 Delivery O2 Flow Rate FiO2 11/06/19 09:01 167/93 11/06/19 09:00 Nasal Cannula 2.0 11/06/19 08:51 97.7 63 18 167/93 (117) 95 11/06/19 04:00 98.3 63 21 153/81 (105) 95 11/06/19 04:00 59 11/06/19 00:26 164/86 11/06/19 00:00 97.9 70 21 164/86 (112) 97 11/06/19 00:00 64 11/05/19 21:00 Nasal Cannula 2.0 11/05/19 20:00 63 11/05/19 20:00 98.1 73 22 148/77 (100) 97 11/05/19 18:49 154/85 11/05/19 16:00 65 11/05/19 16:00 97.3 74 20 154/85 (108) 97 11/05/19 12:09 97.7 11/05/19 12:00 97.9 88 18 192/96 (128) 98 11/05/19 12:00 79 11/05/19 11:40 192/96 Intake and Output 11/05/19 11/06/19 19:00 07:00 Intake Total 360 ml 450 ml Output Total 660 ml Balance 360 ml -210 ml Intake Oral 360 ml 450 ml Output Urine Total 660 ml # Voids 3 4 Laboratory Tests 11/06/19 07:45: Sodium Level 140, Potassium Level 4.4, Chloride Level 105, Carbon Dioxide Level 19L, Anion Gap 16H, Blood Urea Nitrogen 57H, Creatinine 3.5H, Estimat Glomerular Filtration Rate 15.5, Glucose Level 171H, Calcium Level 9.0 Height (Feet): 5 Height (Inches): 6.00 Weight (Pounds): 176 Akhil Prince MD November 06, 2019 11:25
[2019-11-06 12:00] VITALS: BP 153/77
--- NOTE | 2019-11-06 12:40 | Infectious Diseases Prog Note ---
Assessment/Plan Assessment/Plan A; 1. Dyspnea rule of COVID-19 pneumonia. 2. Hypertension. 3. Chronic renal failure. 4. Anemia PLAN: 1. Continue Levaquin for now. 2. Continue isolation. 3. We will follow up COVID-19 test results. Subjective ROS Limited/Unobtainable: Yes Constitutional: Denies: fever Allergies: Coded Allergies: SULFA (SULFONAMIDE ANTIBIOTICS) (Unverified Allergy, Severe, SWELLING, ) AMPICILLIN (Unverified Allergy, Intermediate, ITCHING, 11/05/17) Objective Vital Signs Last 24 Hour Vital Signs Date Time Temp Pulse Resp B/P (MAP) Pulse Ox O2 Delivery O2 Flow Rate FiO2 11/06/19 09:01 167/93 11/06/19 09:00 Nasal Cannula 2.0 11/06/19 08:51 97.7 63 18 167/93 (117) 95 11/06/19 04:00 98.3 63 21 153/81 (105) 95 11/06/19 04:00 59 11/06/19 00:26 164/86 11/06/19 00:00 97.9 70 21 164/86 (112) 97 11/06/19 00:00 64 11/05/19 21:00 Nasal Cannula 2.0 11/05/19 20:00 63 11/05/19 20:00 98.1 73 22 148/77 (100) 97 11/05/19 18:49 154/85 11/05/19 16:00 65 11/05/19 16:00 97.3 74 20 154/85 (108) 97 Height (Feet): 5 Height (Inches): 6.00 Weight (Pounds): 176 General Appearance: no acute distress HEENT: mucous membranes moist Respiratory/Chest: no respiratory distress, other - oxygen by nasal cannula Cardiovascular: normal rate Abdomen: soft, non tender Neurologic/Psychiatric: other - sleeping Laboratory Tests Test 11/06/19 07:45 Sodium Level 140 MMOL/L (136-145) Potassium Level 4.4 MMOL/L (3.5-5.1) Chloride Level 105 MMOL/L (98-107) Carbon Dioxide Level 19 MMOL/L (21-32) L Anion Gap 16 mmol/L (5-15) H Blood Urea Nitrogen 57 mg/dL (7-18) H Creatinine 3.5 MG/DL (0.55-1.30) H Estimat Glomerular Filtration Rate 15.5 mL/min (>60) Glucose Level 171 MG/DL (74-106) H Calcium Level 9.0 MG/DL (8.5-10.1) Current Medications Medications (Trade) Dose Ordered Sig/Konstantin Route PRN Reason Start Time Stop Time Status Last Admin Dose Admin Acetaminophen (Tylenol) 650 mg Q4H PRN ORAL Mild Pain (Pain Scale 1-3) 11/04/19 21:45 12/04/19 21:44 11/05/19 21:12 Acetaminophen/ Codeine Phosphate (Tylenol #3) 2 tab Q4H PRN ORAL For Pain 11/05/19 11:00 11/12/19 10:59 11/06/19 09:01 Al Hydroxide/Mg Hydroxide (Mylanta) 30 ml Q4H PRN ORAL Constipation 11/05/19 05:00 12/05/19 04:59 Albuterol Sulfate (Proventil MDI) 2 puff Q4H PRN INH Shortness of Breath 11/04/19 16:30 02/02/20 16:29 11/04/19 17:06 Albuterol Sulfate (Proventil) 2.5 mg Q4H PRN HHN Shortness of Breath 11/04/19 21:45 11/09/19 21:44 Clonidine HCl (Catapres Tab) 0.1 mg Q4H PRN ORAL HYPERTENSION 11/05/19 11:00 02/03/20 10:59 11/06/19 09:01 Diazepam (Valium) 5 mg BID PRN ORAL For Anxiety 11/05/19 11:00 11/12/19 10:59 11/06/19 11:29 Heparin Sodium (Porcine) (Heparin 5000 units/ml) 5,000 units EVERY 12 HOURS SUBQ 11/04/19 21:45 12/19/19 21:44 11/06/19 09:04 Levofloxacin (Levaquin) 250 mg Q48H ORAL 11/07/19 09:00 11/14/19 08:59 Methylprednisolone Sodium Succinate (Solu-MEDROL) 60 mg EVERY 12 HOURS IVP 11/04/19 21:45 02/02/20 21:44 11/06/19 09:01 Pantoprazole (Protonix) 40 mg DAILY ORAL 11/05/19 09:00 12/05/19 08:59 11/06/19 09:01 Barak Stafford MD November 06, 2019 12:40
--- NOTE | 2019-11-06 13:50 | Pulmonology Progress Note ---
Subjective ROS Limited/Unobtainable: Yes Constitutional: Denies: fever Allergies: Coded Allergies: SULFA (SULFONAMIDE ANTIBIOTICS) (Unverified Allergy, Severe, SWELLING, ) AMPICILLIN (Unverified Allergy, Intermediate, ITCHING, 11/05/17) Subjective overall better care noted Objective Last 24 Hour Vital Signs Date Time Temp Pulse Resp B/P (MAP) Pulse Ox O2 Delivery O2 Flow Rate FiO2 11/06/19 12:00 97.5 62 18 153/77 (102) 95 11/06/19 11:25 62 11/06/19 09:01 167/93 11/06/19 09:00 Nasal Cannula 2.0 11/06/19 08:51 97.7 63 18 167/93 (117) 95 11/06/19 07:48 67 11/06/19 04:00 98.3 63 21 153/81 (105) 95 11/06/19 04:00 59 11/06/19 00:26 164/86 11/06/19 00:00 97.9 70 21 164/86 (112) 97 11/06/19 00:00 64 11/05/19 21:00 Nasal Cannula 2.0 11/05/19 20:00 63 11/05/19 20:00 98.1 73 22 148/77 (100) 97 11/05/19 18:49 154/85 11/05/19 16:00 65 11/05/19 16:00 97.3 74 20 154/85 (108) 97 Intake and Output 11/05/19 11/06/19 19:00 07:00 Intake Total 360 ml 450 ml Output Total 660 ml Balance 360 ml -210 ml Intake Oral 360 ml 450 ml Output Urine Total 660 ml # Voids 3 4 Objective WDWN NAD clear breath sounds bilaterally without rhonchi or wheeze [id number] without MRG NABS nontender no HSM no CC reduced edema nonfocal Laboratory Tests 11/06/19 07:45: Sodium Level 140, Potassium Level 4.4, Chloride Level 105, Carbon Dioxide Level 19L, Anion Gap 16H, Blood Urea Nitrogen 57H, Creatinine 3.5H, Estimat Glomerular Filtration Rate 15.5, Glucose Level 171H, Calcium Level 9.0 Current Medications Medications (Trade) Dose Ordered Sig/Konstantin Route PRN Reason Start Time Stop Time Status Last Admin Dose Admin Acetaminophen (Tylenol) 650 mg Q4H PRN ORAL Mild Pain (Pain Scale 1-3) 11/04/19 21:45 12/04/19 21:44 11/05/19 21:12 Acetaminophen/ Codeine Phosphate (Tylenol #3) 2 tab Q4H PRN ORAL For Pain 11/05/19 11:00 11/12/19 10:59 11/06/19 09:01 Al Hydroxide/Mg Hydroxide (Mylanta) 30 ml Q4H PRN ORAL Constipation 11/05/19 05:00 12/05/19 04:59 Albuterol Sulfate (Proventil MDI) 2 puff Q4H PRN INH Shortness of Breath 11/04/19 16:30 02/02/20 16:29 11/04/19 17:06 Albuterol Sulfate (Proventil) 2.5 mg Q4H PRN HHN Shortness of Breath 11/04/19 21:45 11/09/19 21:44 Clonidine HCl (Catapres Tab) 0.1 mg Q4H PRN ORAL HYPERTENSION 11/05/19 11:00 02/03/20 10:59 11/06/19 09:01 Diazepam (Valium) 5 mg BID PRN ORAL For Anxiety 11/05/19 11:00 11/12/19 10:59 11/06/19 11:29 Heparin Sodium (Porcine) (Heparin 5000 units/ml) 5,000 units EVERY 12 HOURS SUBQ 11/04/19 21:45 12/19/19 21:44 11/06/19 09:04 Levofloxacin (Levaquin) 250 mg Q48H ORAL 11/07/19 09:00 11/14/19 08:59 Methylprednisolone Sodium Succinate (Solu-MEDROL) 60 mg EVERY 12 HOURS IVP 11/04/19 21:45 02/02/20 21:44 11/06/19 09:01 Pantoprazole (Protonix) 40 mg DAILY ORAL 11/05/19 09:00 12/05/19 08:59 11/06/19 09:01 Assessment/Plan Assessment/Plan IMPRESSION respiratory distress COPD with exacerbation fluid overload CRI hypertension elevated cholesterol rule out COVID PLAN care as is on isolation diurese as able ID follow up cards noted recent echo with normal EF venous US negative recently diurese renal US pending assess renal function and respiratory symptoms iv steroids and antibiotics impression, plan, and exam edited and reviewed in detail care discussed with Danny Giraldo MD November 06, 2019 13:50
[2019-11-06 16:00] VITALS: BP 150/70
--- NOTE | 2019-11-06 16:30 | NUR ---
NURSE NOTES: Patient tried to leave unit stating "my needs something from me. I'm trying to bring it to him." Educated the patient the risks of leaving the unit. Patient ambulated back to room without any incident.
--- NOTE | 2019-11-06 19:13 | NUR ---
HAND-OFF: Report given to Ruth OCONNELL. Endorsed plan of care.
--- NOTE | 2019-11-06 19:33 | NUR ---
NURSE NOTES: Received report from KOURTNEY Meek. Patient is awake, alert and oriented x 3. On nasal cannula @ 2Lpm with no shortness or difficulty of breathing reported, saturating 96%. On a cardiac diet-instructed and amenable. phototypesetting equipment monitor is in placed, shows sinus rhythm with no chest pain at this time. Patient is ambulatory but unsteady and she's continent. IV site is on left AC g-22 saline lock that is asymptomatic, patent and intact. Safety measures are in placed, bed in lowest and lock position. Call light and bedside table within reach, instructed to call for any assistance needed.
[2019-11-06 20:00] VITALS: BP 175/83
[2019-11-06] MEDS: Solu-MEDROL 40mg Inj IVP SCH (20:28)
--- NOTE | 2019-11-06 22:14 | Progress Note ---
DATE: 11/06/2019 CARDIOLOGY PROGRESS NOTE SUBJECTIVE: Patient remains on isolation pending final COVID-19 results. The patient still has some congestion and shortness of breath, but feels better daily. Her blood pressure parameters remain elevated. Monitored rhythm, sinus with rare atrial ectopics. PHYSICAL EXAMINATION: VITAL SIGNS: Blood pressure 167/93, heart rate 63, respiratory rate 18. LUNGS: Bilateral breath sounds. No wheezing or rales. CARDIAC: Regular rhythm and rate. Normal S1, S2 with a fourth heart sound. ABDOMEN: Soft. EXTREMITIES: Trace edema. LABORATORY DATA: Sodium 140, potassium 4.4, bicarb 19, BUN 57, creatinine 3.5, glucose 171. IMPRESSION: 1. Volume overload. 2. Acute on chronic renal failure. 3. Acute on chronic diastolic congestive heart failure. 4. Type 2 diabetes mellitus with hyperglycemia. 5. Mild protein-calorie malnutrition. 6. Hyperkalemia, resolved. PLAN: 1. Holding diuretics. 2. Optimizing antihypertensive and anti-failure regimen. 3. May ultimately require hemodialysis and ultrafiltration in the future. Darío Abrams M.D. DR: TURNER JOB#: [id number] CC:
--- NOTE | 2019-11-06 22:29 | Consultation ---
DATE OF CONSULTATION: 11/04/2019 CARDIOLOGY CONSULTATION LATE ENTRY CONSULTING PHYSICIAN: Darío Abrams MD. REQUESTING PHYSICIAN: Danny Nash MD. REASON FOR CONSULTATION: Acute congestive heart failure. HISTORY OF PRESENT ILLNESS: This is a 74-year-old female with a longstanding history of hypertension, hypertensive heart and renal disease, type 2 diabetes mellitus. She has had several days of progressive shortness of breath with leg swelling. She has noted worsening shortness of breath with minimal activity. She was given oral diuretics as an outpatient and had worsening kidney function. She notes that her legs are always swollen due to her kidney disease but were worse recently. She usually wears compression stockings. The patient has not followed up with kidney doctor despite prior referrals. The patient denies any recent contact with [facility]- person and has not had any fevers, chills, cough, or shortness of breath. No headache. PAST MEDICAL HISTORY: Hypertension, chronic kidney disease, glucose intolerance, osteoarthritis, hyperlipidemia, bronchospastic lung disease. ALLERGIES: Include sulfa and penicillin. FAMILY HISTORY: Noncontributory. SOCIAL HISTORY: Negative for alcohol or substance abuse. She has a prior smoking history. REVIEW OF SYSTEMS: A 10-point review of systems performed. All systems negative other than noted above. It should be noted that prior hospitalization in 2019 revealed a baseline creatinine in the range of 2.5 to 2.8. In addition, her echocardiogram at that time revealed normal ejection fraction with no significant valvular disease. PHYSICAL EXAMINATION: VITAL SIGNS: Blood pressure 176/82 in the emergency room, presently 167/80, heart rate 76, respiratory rate 21, oxygen saturation 100% on room air, temperature 99. NECK: Jugular venous pressure elevated. LUNGS: Few rales. CARDIAC: Regular rhythm rate. Normal S1, S2 with a fourth heart sound. ABDOMEN: Soft, nontender. EXTREMITIES: 1+ dependent edema. LABORATORY DATA: Sodium 139, potassium 5.6, bicarb 24, BUN 48, creatinine 3.5. Pro-natriuretic peptide 2659. Albumin 3.4. White count is 8.8, hemoglobin 10.3. Urinalysis pending. IMPRESSION: 1. Volume overload. 2. Acute on chronic renal failure. 3. Acute on chronic diastolic congestive heart failure. 4. Hypertensive heart disease with elevated blood pressure trend. 5. Hyperkalemia. PLAN: 1. Cardiac monitoring, diuresis, optimize and maximize anti-failure regimen. 2. DVT prophylaxis. 3. Repeat echocardiogram. 4. Venous duplex of lower extremity. 5. Close monitoring of renal function and renal ultrasound per primary care physician. 6. We will follow with you during this hospital course. Darío Abrams M.D. DR: Hayes JOB#: [id number] CC:
[2019-11-07] VITALS: BP 153/82
[2019-11-07 04:00] VITALS: BP 157/95
[2019-11-07] MEDS: Tylenol #3 tab (300mg/30mg) ORAL PRN (06:47)
--- NOTE | 2019-11-07 07:15 | NUR ---
NURSE NOTES: Received report from Phyllis/RN, Patient is awake and alert A/O x3, sitting on edge of the bed, On 2L nasal canula, no acute distress/SOB noted. Denies pain at this time. IV on left AC 20G, patent, no bleeding or infiltration noted. Bed in low position and locked. Call light within reach. Encouraged to use call light when needed. Will continue plan of care.
--- NOTE | 2019-11-07 07:50 | NUR ---
HAND-OFF: Report given to KOURTNEY Kern. Patient is in stable condition, plan of care endorsed.
[2019-11-07 08:00] VITALS: BP 149/80
[2019-11-07 09:26] VITALS: BP 149/80
[2019-11-07] MEDS: Solu-MEDROL 40mg Inj IVP SCH (09:26)
[2019-11-07] MEDS: Heparin 5000 units/ml inj SUBQ SCH (09:26)
--- NOTE | 2019-11-07 09:41 | Pulmonology Progress Note ---
Subjective ROS Limited/Unobtainable: Yes Constitutional: Denies: fever Allergies: Coded Allergies: SULFA (SULFONAMIDE ANTIBIOTICS) (Unverified Allergy, Severe, SWELLING, ) AMPICILLIN (Unverified Allergy, Intermediate, ITCHING, 11/05/17) Subjective overall much better care noted Objective Last 24 Hour Vital Signs Date Time Temp Pulse Resp B/P (MAP) Pulse Ox O2 Delivery O2 Flow Rate FiO2 11/07/19 09:26 70 149/80 11/07/19 08:00 97.3 70 20 149/80 (103) 98 11/07/19 04:31 165/91 11/07/19 04:00 97.7 71 23 157/95 (115) 98 11/07/19 04:00 68 11/07/19 00:25 153/82 11/07/19 00:00 75 11/07/19 00:00 97.5 74 21 153/82 (105) 100 11/06/19 21:00 Nasal Cannula 2.0 11/06/19 20:25 72 155/78 11/06/19 20:00 97.9 69 22 175/83 (113) 100 11/06/19 19:31 97 11/06/19 16:00 97.2 61 18 150/70 (96) 96 11/06/19 15:49 93 11/06/19 12:00 97.5 62 18 153/77 (102) 95 11/06/19 11:25 62 Intake and Output 11/06/19 11/07/19 19:00 07:00 Intake Total 240 ml Balance 240 ml Intake Oral 240 ml Objective WDWN NAD clear breath sounds bilaterally without rhonchi or wheeze [id number] without MRG NABS nontender no HSM no CC reduced edema nonfocal Current Medications Medications (Trade) Dose Ordered Sig/Konstantin Route PRN Reason Start Time Stop Time Status Last Admin Dose Admin Acetaminophen (Tylenol) 650 mg Q4H PRN ORAL Mild Pain (Pain Scale 1-3) 11/04/19 21:45 12/04/19 21:44 11/05/19 21:12 Acetaminophen/ Codeine Phosphate (Tylenol #3) 2 tab Q4H PRN ORAL For Pain 11/05/19 11:00 11/12/19 10:59 11/07/19 06:47 Al Hydroxide/Mg Hydroxide (Mylanta) 30 ml Q4H PRN ORAL Constipation 11/05/19 05:00 12/05/19 04:59 Albuterol Sulfate (Proventil MDI) 2 puff Q4H PRN INH Shortness of Breath 11/04/19 16:30 02/02/20 16:29 11/04/19 17:06 Albuterol Sulfate (Proventil) 2.5 mg Q4H PRN HHN Shortness of Breath 11/04/19 21:45 11/09/19 21:44 Amlodipine Besylate (Norvasc) 5 mg DAILY ORAL 11/06/19 20:30 12/06/19 20:29 11/07/19 09:26 Clonidine HCl (Catapres Tab) 0.1 mg Q4H PRN ORAL HYPERTENSION 11/05/19 11:00 02/03/20 10:59 11/07/19 04:31 Diazepam (Valium) 5 mg BID PRN ORAL For Anxiety 11/05/19 11:00 11/12/19 10:59 11/07/19 00:25 Heparin Sodium (Porcine) (Heparin 5000 units/ml) 5,000 units EVERY 12 HOURS SUBQ 11/04/19 21:45 12/19/19 21:44 11/07/19 09:26 Levofloxacin (Levaquin) 250 mg Q48H ORAL 11/07/19 09:00 11/14/19 08:59 11/07/19 09:25 Methylprednisolone Sodium Succinate (Solu-MEDROL) 30 mg EVERY 12 HOURS IVP 11/06/19 21:00 02/04/20 20:59 11/07/19 09:26 Pantoprazole (Protonix) 40 mg DAILY ORAL 11/05/19 09:00 12/05/19 08:59 11/07/19 09:25 Assessment/Plan Assessment/Plan IMPRESSION respiratory distress COPD with exacerbation fluid overload CRI hypertension elevated cholesterol rule out COVID PLAN dc home medrol dose kostas lasix daily recent echo with normal EF venous US negative recently close follow up of renal function HH on dc impression, plan, and exam edited and reviewed in detail care discussed with Danny Giraldo MD November 07, 2019 09:41
--- NOTE | 2019-11-07 10:01 | NUR ---
*-*DISCHARGE PLANNING*-* PATIENT HAS BEEN REFERRED TO: [facility] P: [phone] F: [phone]
--- NOTE | 2019-11-07 10:40 | NUR ---
NURSE NOTES: Patient got discharged with Home Health, and CM wants the patient to stay for 30 minutes, Patient refused to stay.
--- NOTE | 2019-11-07 10:41 | NUR ---
NURSE NOTES: Discharge instruction given, verbalized understanding, IV and air sampling and monitoring removed, no bleeding, no distress. Belonging check done and signed by patient. Escorted down stairs, and patient left with family via private vehicle.
--- NOTE | 2019-11-07 10:57 | Infectious Diseases Prog Note ---
Assessment/Plan Assessment/Plan antibiotics : levoquin A 1. pneumonia 2. hypertension 3. renal failure P 1. d/c levoquin 2. observe off antibiotics Subjective ROS Limited/Unobtainable: Yes Allergies: Coded Allergies: SULFA (SULFONAMIDE ANTIBIOTICS) (Unverified Allergy, Severe, SWELLING, ) AMPICILLIN (Unverified Allergy, Intermediate, ITCHING, 11/05/17) Objective Vital Signs Last 24 Hour Vital Signs Date Time Temp Pulse Resp B/P (MAP) Pulse Ox O2 Delivery O2 Flow Rate FiO2 11/07/19 09:26 70 149/80 11/07/19 08:00 97.3 70 20 149/80 (103) 98 11/07/19 04:31 165/91 11/07/19 04:00 97.7 71 23 157/95 (115) 98 11/07/19 04:00 68 11/07/19 00:25 153/82 11/07/19 00:00 75 11/07/19 00:00 97.5 74 21 153/82 (105) 100 11/06/19 21:00 Nasal Cannula 2.0 11/06/19 20:25 72 155/78 11/06/19 20:00 97.9 69 22 175/83 (113) 100 11/06/19 19:31 97 11/06/19 16:00 97.2 61 18 150/70 (96) 96 11/06/19 15:49 93 11/06/19 12:00 97.5 62 18 153/77 (102) 95 11/06/19 11:25 62 Height (Feet): 5 Height (Inches): 6.00 Weight (Pounds): 176 Current Medications Medications (Trade) Dose Ordered Sig/Konstantin Route PRN Reason Start Time Stop Time Status Last Admin Dose Admin Acetaminophen (Tylenol) 650 mg Q4H PRN ORAL Mild Pain (Pain Scale 1-3) 11/04/19 21:45 12/04/19 21:44 11/05/19 21:12 Acetaminophen/ Codeine Phosphate (Tylenol #3) 2 tab Q4H PRN ORAL For Pain 11/05/19 11:00 11/12/19 10:59 11/07/19 06:47 Al Hydroxide/Mg Hydroxide (Mylanta) 30 ml Q4H PRN ORAL Constipation 11/05/19 05:00 12/05/19 04:59 Albuterol Sulfate (Proventil MDI) 2 puff Q4H PRN INH Shortness of Breath 11/04/19 16:30 02/02/20 16:29 11/04/19 17:06 Albuterol Sulfate (Proventil) 2.5 mg Q4H PRN HHN Shortness of Breath 11/04/19 21:45 11/09/19 21:44 Amlodipine Besylate (Norvasc) 5 mg DAILY ORAL 11/06/19 20:30 12/06/19 20:29 11/07/19 09:26 Clonidine HCl (Catapres Tab) 0.1 mg Q4H PRN ORAL HYPERTENSION 11/05/19 11:00 02/03/20 10:59 11/07/19 04:31 Diazepam (Valium) 5 mg BID PRN ORAL For Anxiety 11/05/19 11:00 11/12/19 10:59 11/07/19 00:25 Heparin Sodium (Porcine) (Heparin 5000 units/ml) 5,000 units EVERY 12 HOURS SUBQ 11/04/19 21:45 12/19/19 21:44 11/07/19 09:26 Levofloxacin (Levaquin) 250 mg Q48H ORAL 11/07/19 09:00 11/14/19 08:59 11/07/19 09:25 Methylprednisolone Sodium Succinate (Solu-MEDROL) 30 mg EVERY 12 HOURS IVP 11/06/19 21:00 02/04/20 20:59 11/07/19 09:26 Pantoprazole (Protonix) 40 mg DAILY ORAL 11/05/19 09:00 12/05/19 08:59 11/07/19 09:25 Sindhu Peraza MD November 07, 2019 10:57
--- NOTE | 2019-11-07 11:04 | NUR ---
CASE MANAGEMENT:REVIEW 11/04/19 74 YR OLD FEMALE WALKED IN TO ER CC: SOB. CHEST CONGESTION. WHEEZING SI: RESPIRATORY DISTRESS. HYPERKALEMIA 99.0 76 22 176/82 95% ON RA H/H-10.3/33.7 K+5.6 BUN+48 CR+3.5 IS: PREDNISONE PO IV LASIX IV INSULIN IV D50W : TO TELEMETRY UNIT IS: IV LASIX IV ROCEPHIN Q24 KAYEXALATE PO X1
--- NOTE | 2019-11-07 11:27 | NUR ---
*-*DISCHARGE PLANNED*-* PATIENT HAS BEEN ACCEPTED WITH: [facility] P: [phone] S/W YURIY WHO STATED THEY WILL SERVICE PATIENT UPON DISCHARGE.
--- NOTE | 2019-11-08 04:59 | Progress Note ---
DATE: 11/07/2019 SUBJECTIVE: Patient feels better. Less shortness of breath. PHYSICAL EXAMINATION: VITAL SIGNS: Blood pressure 149/80, heart rate 70, respirations 20, afebrile. LUNGS: Clear. CARDIAC: Regular rhythm and rate. Normal S1, S2 with a fourth heart sound. ABDOMEN: Soft. EXTREMITIES: No edema. IMPRESSION: 1. Acute on chronic renal failure, improved. 2. Acute on chronic diastolic congestive heart failure, better compensated. 3. Hypertensive heart disease with labile blood pressure, improving. PLAN: 1. Outpatient followup adequate at this time. 2. Cardiology followup offered. 3. Ultimately patient may require hemodialysis with ultrafiltration. 4. Further tightening of blood pressure control as an outpatient is recommended. Darío Abrams M.D. DR: TURNER JOB#: [id number] CC:
--- NOTE | 2019-11-08 12:07 | Discharge Summary ---
Discharge Summary Discharge Summary _ DATE OF ADMISSION: 11/04/2019 DATE OF DISCHARGE: 11/07/2019 DISCHARGED BY: Dr. Nash REASON FOR ADMISSION: 74 years old female was sent to emergency department by her primary care provider for progressive shortness of breath for the last 3 days. Shortness of breath was worse with physical exertion or talking. Patient also reported lower extremity swelling. She reported mild intermittent cough, nonproductive. She denied fever or chills. She denied sore throat or nasal congestion. She denied recent traveling or exposure to people with known COVID-19. Blood pressure was elevated 176/82, pulse oximetry was stable on room air , patient was afebrile. Troponin negative . Pro BNP 2659. EKG revealed sinus rhythm , no acute ischemic changes. Laboratory work-up revealed no leukocytosis, hemoglobin 10.3, hematocrit 33.7. ABG was stable. Potassium 5.6. BUN 48, creatinine 3.5. Chest x-ray revealed no evidence of acute cardiopulmonary pathology. Mild linear atelectasis or scaring at the periphery of the right base. Patient received loading dose of Solu-Medrol and MDI Albuterol Patient was swabbed for COVID-1 and admitted for further management. CONSULTANTS: packaging mechanic Dr.Kattan [place] specialist Dr. Peraza fence machine operator Dr.De Salazar [facility] COURSE: Patient admitted to telemetry floor. Patient started on the IV steroids with tapering. Empiric antibiotics provided. Patient was kept in isolation. Supplemental oxygen provided and titrated to keep oximetry above 92%. Pulmonary toilet provided. SARS-CoV- 2 by PCR from 11/03 came back non-detected. Isolation discontinued. Echocardiogram revealed preserved ejection fraction of 65%. No evidence of wall motion abnormality. Mild left ventricular hypertrophy. Mild mitral regurgitation. Antihypertensive regimen was optimized as per packaging mechanic. Blood pressure was controlled. Repeated troponin was negative. Renal parameters and electrolytes were closely monitored. Electrolytes corrected as needed. Urine studies were done. Per fence machine operator patient had chronic kidney disease stage IV with superimposed acute kidney injury . Lasix was on hold. Creatinine trending down. Licensed Midwife recommended to have renal biopsy at some point. Patient clinically stabilized and was ready for discharge home with home health services. Patient to follow-up as outpatient with his primary care provider in the office or over the phone due to COVID 2019 pandemic. FINAL DIAGNOSES: COPD with exacerbation Fluid overload Respiratory distress Acute kidney injury on chronic kidney disease stage IV Acute on chronic diastolic congestive heart failure Hypertensive heart disease with labile blood pressure Elevated cholesterol Suspected COVID-19 infection - ruled out Hyperkalemia DISCHARGE MEDICATIONS: See Medication Reconciliation list. DISCHARGE INSTRUCTIONS: Patient was discharged home with home health services. Follow up with primary care provider in one week. I have been assigned to dictate discharge summary for this account. I was not involved in the patient's management. Keya Garcia NP November 08, 2019 12:07
== END 2019-11-07 10:40 | disposition home health service (06) | DRG 190 ==
LOC: EMR 16:17 → 2E 16:55 → EDBEDREQ 17:48 → 2E 11-05 22:07
DX: J44.1 Chronic obstructive pulmonary disease with (acute) exacerbation (principal); I50.33 Acute on chronic diastolic (congestive) heart failure; E44.1 Mild protein-calorie malnutrition; N17.9 Acute kidney failure, unspecified; N18.4 Chronic kidney disease, stage 4 (severe); I13.0 Hypertensive heart and chronic kidney disease with heart failure and stage 1 through stage 4 chronic kidney disease, or unspecified chronic kidney disease; E87.5 Hyperkalemia; Z68.28 Body mass index [BMI] 28.0-28.9, adult; R06.03 Acute respiratory distress; E78.00 Pure hypercholesterolemia, unspecified; Z88.1 Allergy status to other antibiotic agents; Z88.2 Allergy status to sulfonamides; Z87.891 Personal history of nicotine dependence; D63.8 Anemia in other chronic diseases classified elsewhere
CPT/HCPCS: 36415; 71045; 80048; 80053; 81050; 82803; 83880; 84156; 84484; 85007; 85025; 87635; 93005; 93306; 96374; 96375; 99285

== ENCOUNTER → 2019-11-15 | Outpatient (CLI) | payer MEDICARE, OTHER ==
[2019-11-15 12:55] LABS: HEMATOCRIT 32.8 % (37.0-47.0); HEMOGLOBIN 11.1 G/DL (12.0-16.0); MEAN CORPUSCULAR VOLUME 94 FL (80-99); PLATELET COUNT 217 K/UL (150-450); RED BLOOD COUNT 3.48 M/UL (4.20-5.40); WHITE BLOOD COUNT 11.3 K/UL (4.8-10.8)
[2019-11-15 13:00] LABS: ANION GAP 10 mmol/L (5-15); BLOOD UREA NITROGEN 33 mg/dL (7-18); CARBON DIOXIDE 24 MMOL/L (21-32); CHLORIDE 109 MMOL/L (98-107); CREATININE 2.9 MG/DL (0.55-1.30); SODIUM 143 MMOL/L (136-145)
== END | disposition home or self-care (01) ==
LOC: LAB 12:26
DX: M79.605 Pain in left leg (principal)
CPT/HCPCS: 36415; 80048; 85007; 85025

== ENCOUNTER 2020-05-18 15:16 | Inpatient (IN) | payer MEDICARE, OTHER ==
[~2020-05-18] VITALS: Ht 170.2 cm; Wt 81.6 kg
[2020-05-18] MEDS ORDERED: Tylenol #3 tab (300mg/30mg) ORAL ONE ×2 (16:00→18:45)
[2020-05-18 16:40] VITALS: BP 176/89
[2020-05-18 17:42] LABS: BASOPHILS % (AUTO) 0.7 % (0.0-2.0); EOSINOPHILS % (AUTO) 1.8 % (0.0-3.0); HEMATOCRIT 32.3 % (37.0-47.0); HEMOGLOBIN 10.3 G/DL (12.0-16.0); LYMPHOCYTES % (AUTO) 21.4 % (20.0-45.0); MEAN CORPUSCULAR VOLUME 99 FL (80-99); MONOCYTES % (AUTO) 7.4 % (1.0-10.0); NEUTROPHILS % (AUTO) 68.8 % (45.0-75.0); PLATELET COUNT 231 K/UL (150-450); RED BLOOD COUNT 3.26 M/UL (4.20-5.40); RED CELL DISTRIBUTION WIDTH 13.6 % (11.6-14.8); WHITE BLOOD COUNT 9.1 K/UL (4.8-10.8)
[2020-05-18 18:04] LABS: ALANINE AMINOTRANSFERASE 22 U/L (12-78); ALBUMIN 3.7 G/DL (3.4-5.0); ALKALINE PHOSPHATASE 90 U/L (46-116); ASPARTATE AMINO TRANSFERASE 34 U/L (15-37); BILIRUBIN,TOTAL 0.3 MG/DL (0.2-1.0); BLOOD UREA NITROGEN 50 mg/dL (7-18); CALCIUM 8.9 MG/DL (8.5-10.1); CARBON DIOXIDE 19 MMOL/L (21-32); CHLORIDE 112 MMOL/L (98-107); CREATININE 3.7 MG/DL (0.55-1.30); POTASSIUM 4.9 MMOL/L (3.5-5.1); SODIUM 144 MMOL/L (136-145)
--- NOTE | 2020-05-18 18:26 | Diagnostic Imaging Report ---
EXAM: XR Chest, 1 View CLINICAL HISTORY: SOB TECHNIQUE: Frontal view of the chest. COMPARISON: 11/05/2019 FINDINGS: Lungs: Mild possible bibasilar hazy lung opacities could be due to low lung volumes and bronchovascular crowding, or could represent early consolidation or pulmonary edema. Low lung volumes with bronchovascular crowding. Pleural space: Unremarkable. No pneumothorax. Heart: Prominent cardiac mediastinal silhouette, likely due at least partially to low lung volumes and portable technique. Mediastinum: See above. Bones/joints: No acute abnormality IMPRESSION: 1. Mild possible bibasilar hazy lung opacities could be due to low lung volumes and bronchovascular crowding, or could represent early consolidation or pulmonary edema. 2. Low lung volumes with bronchovascular crowding. 3. Prominent cardiomediastinal silhouette, likely due at least partially to low lung volumes and portable technique. 4. Recommend PA and lateral chest radiographs if the patient can tolerate.
[2020-05-18 18:44] VITALS: BP 173/87
--- NOTE | 2020-05-18 19:38 | Emergency Room Report ---
History of Present Illness General Chief Complaint: Upper Respiratory Illness Source: Patient Present Illness HPI 75-year-old female presents for evaluation. Complaining of shortness of breath and leg swelling x1 day. States he is is prescribed water pill but states is not helping. Denies chest pain. Denies cough. Denies fevers or chills. No other aggravating relieving factors. Denies any other associated symptoms Allergies: Coded Allergies: SULFA (SULFONAMIDE ANTIBIOTICS) (Unverified Allergy, Severe, SWELLING, 11/05/17) AMPICILLIN (Unverified Allergy, Intermediate, ITCHING, 11/05/17) COVID-19 Screening Contact w/high risk pt: No Recent Travel to affected area: No Experienced COVID-19 symptoms?: Yes COVID-19 symptoms experienced: Shortness of Breath COVID-19 Testing performed BICYCLE RACER: No Patient History Past Medical History: HTN, CHF Past Surgical History: none Pertinent Family History: none Social History: Denies: smoking, alcohol use, drug use Now: No Immunizations: UTD Reviewed Nursing Documentation: PMH: Agreed; PSxH: Agreed Nursing Documentation-PMH Hx Cardiac Problems: Yes Hx Hypertension: Yes Hx Cancer: No Hx Gastrointestinal Problems: No Hx Neurological Problems: Yes Hx Weakness: Yes Review of Systems All Other Systems: negative except mentioned in HPI Physical Exam Vital Signs Date Time Temp Pulse Resp B/P (MAP) Pulse Ox O2 Delivery O2 Flow Rate FiO2 05/18/20 15:30 98.1 62 24 190/80 (116) 96 Room Air 05/18/20 16:40 99 Sp02 EP Interpretation: reviewed, normal General Appearance: no apparent distress, alert, GCS 15, non-toxic Head: normocephalic, atraumatic Eyes: bilateral eye normal inspection, bilateral eye PERRL ENT: hearing grossly normal, normal pharynx, no angioedema, normal voice Neck: full range of motion, supple/symm/no masses Respiratory: chest non-tender, lungs clear, normal breath sounds, speaking full sentences Cardiovascular #1: regular rate, rhythm, no edema Cardiovascular #2: 2+ carotid (R), 2+ carotid (L), 2+ radial (R), 2+ radial (L), 2+ dorsalis pedis (R), 2+ dorsalis pedis (L) Gastrointestinal: normal bowel sounds, non tender, soft, non-distended, no guarding, no rebound Rectal: deferred Genitourinary: normal inspection, no CVA tenderness Musculoskeletal: back normal, normal range of motion, gait/station normal, non- tender, swelling Neurologic: alert, motor strength/tone normal, oriented x3, sensory intact, responsive, speech normal Psychiatric: judgement/insight normal, memory normal, mood/affect normal, no suicidal/homicidal ideation Reflexes: 3+ bicep (R), 3+ bicep (L), 3+ tricep (R), 3+ tricep (L), 3+ knee (R), 3+ knee (L) Skin: other - See nursing notes Lymphatic: no adenopathy Procedures Critical Care Time Critical Care Time i. I feel this is a highly complex case requiring extensive working including EKG/Rhythm strip, Xray/CT/US, Blood/urine lab work, repeat exams while in ED, and administration of strong opiates/narcotics for pain control, admission to hospital or close patient follow up. Total time: 30 min bedside evaluation and treatment excludes procedures (EKG). Reason for critical care: Shortness of breath, CHF Possible complications: hypotension, hypertension, NE, shock, arrhythmias, metabolic acidosis, end organ damage, respiratory failure. Interventions: Labs, EKG, chest x-ray, pain meds, IV Lasix, cardiac monitoring Course: Patient presenting with leg swelling and shortness of breath. Troponin minimally elevated. BNP elevated. Chest x-ray shows cardiomegaly with interstitial congestion. IV Lasix given. Aspirin given. Consultations: nursing staff, EMS, family Performed by: Dr Kiser Tolerated well condition = serious j. because of unstable vital signs this patient had a condition that could potentially threaten life or limb. I feel this is a critical patient who required my full attention while patient was considered critical. Total Critical Care Time excluding procedures was greater than 35 minutes Medical Decision Making Diagnostic Impression: Primary Impression: CHF exacerbation Qualified Codes: I50.9 - Heart failure, unspecified ER Course Hospital Course 75-year-old female presents ED complaining of shortness of breath, leg swelling Differential diagnoses include: NE/unstable angina, contusion, muscle strain, PTX, rib fracture Clinical course Patient placed on stretcher. on master merchandiser. After initial history and physical I ordered labs, EKG, chest x-ray, pain meds labs reviewed- no leukocytosis, hemoglobin/hematocrit stable, troponin indeterminate, BNP elevated EKGnormal sinus rhythm no acute ischemic changes interpreted by me Chest x-ray- pulmonary congestion Aspiring given. Lasix given. Case discussed with Dr. Nash and he agreed to accept the patient to his service for further care and support I. I feel this is a highly complex case requiring extensive working including EKG/Rhythm strip, Xray/CT/US, Blood/urine lab work, repeat exams while in ED, and administration of strong opiates/narcotics for pain control, admission to hospital or close patient follow up. Diagnosis - CHF exacerbation admitted to telemetry in serious condition Laboratory Tests Test 05/18/20 17:35 White Blood Count 9.1 K/UL (4.8-10.8) Red Blood Count 3.26 M/UL (4.20-5.40) L Hemoglobin 10.3 G/DL (12.0-16.0) L Hematocrit 32.3 % (37.0-47.0) L Mean Corpuscular Volume 99 FL (80-99) Mean Corpuscular Hemoglobin 31.7 PG (27.0-31.0) H Mean Corpuscular Hemoglobin Concent 32.0 G/DL (32.0-36.0) Red Cell Distribution Width 13.6 % (11.6-14.8) Platelet Count 231 K/UL (150-450) Mean Platelet Volume 7.3 FL (6.5-10.1) Neutrophils (%) (Auto) 68.8 % (45.0-75.0) Lymphocytes (%) (Auto) 21.4 % (20.0-45.0) Monocytes (%) (Auto) 7.4 % (1.0-10.0) Eosinophils (%) (Auto) 1.8 % (0.0-3.0) Basophils (%) (Auto) 0.7 % (0.0-2.0) Sodium Level 144 MMOL/L (136-145) Potassium Level 4.9 MMOL/L (3.5-5.1) Chloride Level 112 MMOL/L (98-107) H Carbon Dioxide Level 19 MMOL/L (21-32) L Blood Urea Nitrogen 50 mg/dL (7-18) H Creatinine 3.7 MG/DL (0.55-1.30) H Estimat Glomerular Filtration Rate 14.4 mL/min (>60) Glucose Level 102 MG/DL (74-106) Calcium Level 8.9 MG/DL (8.5-10.1) Total Bilirubin 0.3 MG/DL (0.2-1.0) Aspartate Amino Transf (AST/SGOT) 34 U/L (15-37) Alanine Aminotransferase (ALT/SGPT) 22 U/L (12-78) Alkaline Phosphatase 90 U/L (46-116) Troponin I 0.066 ng/mL (0.000-0.056) Pro-B-Type Natriuretic Peptide 80997 pg/mL (0-125) H Total Protein 7.5 G/DL (6.4-8.2) Albumin 3.7 G/DL (3.4-5.0) Globulin 3.8 g/dL Albumin/Globulin Ratio 1.0 (1.0-2.7) EKG Diagnostic Results Troponin ordered: Yes Rate: normal Rhythm: NSR ST Segments: no acute changes ASA given to the pt in ED: Yes Rhythm Strip Diag. Results EP Interpretation: yes Rhythm: NSR, no PVC's, no ectopy Chest X-Ray Diagnostic Results Chest X-Ray Diagnostic Results : Chest X-Ray Ordered: Yes # of Views/Limited/Complete: 1 View Indication: Shortness of Breath EP Interpretation: Yes Interpretation: no pneumothorax, other - cardiomegaly, bilateral interstitial congestion Impression: Other - CHF Electronically Signed by: Electronically signed by Curtis Kiser MD Last Vital Signs Date Time Temp Pulse Resp B/P (MAP) Pulse Ox O2 Delivery O2 Flow Rate FiO2 05/18/20 19:12 98.1 05/18/20 18:44 64 21 173/87 97 Room Air 05/18/20 16:40 99 Status: improved Disposition: ADMITTED INPATIENT Condition: Serious Referrals: Danny Nash MD (PCP) Curtis Kiser MD May 18, 2020 19:38
[2020-05-18] MEDS ORDERED: Morphine Sulfate 4mg/ml Inj (IV USE ONLY) IVP ONE (19:45)
[2020-05-18 21:45] VITALS: BP 145/82
[2020-05-18] MEDS ORDERED: HYDROcodone/Acetamin 5/325 tab ORAL PRN ×2 (23:45)
[2020-05-19] VITALS (7 sets, daily range): BP systolic 140–177; BP diastolic 60–85
[2020-05-19 06:21] LABS: BASOPHILS % (AUTO) 0.8 % (0.0-2.0); EOSINOPHILS % (AUTO) 3.5 % (0.0-3.0); HEMATOCRIT 24.4 % (37.0-47.0); HEMOGLOBIN 8.4 G/DL (12.0-16.0); LYMPHOCYTES % (AUTO) 26.1 % (20.0-45.0); MEAN CORPUSCULAR VOLUME 95 FL (80-99); MONOCYTES % (AUTO) 8.8 % (1.0-10.0); NEUTROPHILS % (AUTO) 60.9 % (45.0-75.0); PLATELET COUNT 162 K/UL (150-450); RED BLOOD COUNT 2.57 M/UL (4.20-5.40); RED CELL DISTRIBUTION WIDTH 15.3 % (11.6-14.8); WHITE BLOOD COUNT 7.5 K/UL (4.8-10.8)
[2020-05-19 06:49] LABS: CALCIUM 8.3 MG/DL (8.5-10.1); CREATININE 3.6 MG/DL (0.55-1.30)
--- NOTE | 2020-05-19 07:29 | History & Physical ---
History and Physical History & Physicial History and Physical HPI Patient is a 75-year-old woman with past history of CHF, CKD and Hypertension, admitted with shortness of breath and leg swelling for day. Feels outpatient diuretic is not helping. Denies chest pain. Denies cough. Denies fevers or chills. No other aggravating relieving factors. Denies any other associated symptoms Allergies: SULFA (SULFONAMIDE ANTIBIOTICS) (Unverified Allergy, Severe, SWELLING, 11/05/17) AMPICILLIN (Unverified Allergy, Intermediate, ITCHING, 11/05/17) Past Medical History: HTN, CHF, CKD, weakness Past Surgical History: NA Family History: NA Social History: No smoking, alcohol use, drug use All Other Systems: negative except mentioned in HPI Physical Exam Vital Signs Noted Date Time Temp Pulse Resp B/P (MAP) Pulse Ox O2 Delivery O2 Flow Rate FiO2 05/18/20 15:30 98.1 62 24 190/80 (116) 96 Room Air 05/18/20 16:40 99 General Appearance: no apparent distress, alert, GCS 15, non-toxic Head: normocephalic, atraumatic Eyes: bilateral eye normal inspection, bilateral eye PERRL ENT: hearing grossly normal, normal pharynx, moist mm Neck: normal, no masses, no LN Respiratory: chest non-tender, lungs clear, normal breath sounds Cardiovascular: HS1, HS2, regular rate, rhythm, no edema Gastrointestinal: normal bowel sounds, non tender, soft, non-distended, no guarding, no rebound Genitourinary: normal inspection, no CVA tenderness Musculoskeletal: back normal, normal range of motion, gait/station normal, non- tender, swelling Neurologic: alert, motor strength/tone normal, oriented x3, sensory intact, no focal signs Impression: Congestive Heart Failure with exacerbation Hypertension Chronic Kidney Disease Plan: IV Lasix HOT WALKER Medications HHN PRN PPX O2 PRN Laboratory Tests noted Test 05/18/20 17:35 White Blood Count 9.1 K/UL (4.8-10.8) Red Blood Count 3.26 M/UL (4.20-5.40) L Hemoglobin 10.3 G/DL (12.0-16.0) L Hematocrit 32.3 % (37.0-47.0) L Mean Corpuscular Volume 99 FL (80-99) Mean Corpuscular Hemoglobin 31.7 PG (27.0-31.0) H Mean Corpuscular Hemoglobin Concent 32.0 G/DL (32.0-36.0) Red Cell Distribution Width 13.6 % (11.6-14.8) Platelet Count 231 K/UL (150-450) Mean Platelet Volume 7.3 FL (6.5-10.1) Neutrophils (%) (Auto) 68.8 % (45.0-75.0) Lymphocytes (%) (Auto) 21.4 % (20.0-45.0) Monocytes (%) (Auto) 7.4 % (1.0-10.0) Eosinophils (%) (Auto) 1.8 % (0.0-3.0) Basophils (%) (Auto) 0.7 % (0.0-2.0) Sodium Level 144 MMOL/L (136-145) Potassium Level 4.9 MMOL/L (3.5-5.1) Chloride Level 112 MMOL/L (98-107) H Carbon Dioxide Level 19 MMOL/L (21-32) L Blood Urea Nitrogen 50 mg/dL (7-18) H Creatinine 3.7 MG/DL (0.55-1.30) H Estimat Glomerular Filtration Rate 14.4 mL/min (>60) Glucose Level 102 MG/DL (74-106) Calcium Level 8.9 MG/DL (8.5-10.1) Total Bilirubin 0.3 MG/DL (0.2-1.0) Aspartate Amino Transf (AST/SGOT) 34 U/L (15-37) Alanine Aminotransferase (ALT/SGPT) 22 U/L (12-78) Alkaline Phosphatase 90 U/L (46-116) Troponin I 0.066 ng/mL (0.000-0.056) Pro-B-Type Natriuretic Peptide 51930 pg/mL (0-125) H Total Protein 7.5 G/DL (6.4-8.2) Albumin 3.7 G/DL (3.4-5.0) Globulin 3.8 g/dL Albumin/Globulin Ratio 1.0 (1.0-2.7) EKG: Rate: normal Rhythm: NSR ST Segments: no acute changes Chest X-Ray: Interpretation: cardiomegaly, bilateral interstitial congestion - CHF Darío Marroquin MD May 19, 2020 07:29
[2020-05-19] MEDS ORDERED: Albuterol/Ipratropium 3ml neb HHN PRN (07:30)
[2020-05-19] MEDS: HydrALAZINE 50mg tab ORAL SCH ×2 (08:26→17:14)
[2020-05-19] MEDS: Metoprolol Tartrate 100mg tab ORAL SCH (08:26)
[2020-05-19] MEDS: Lactulose 20gm/30ml UDC ORAL SCH ×2 (08:27→17:13)
[2020-05-19] MEDS: Fleet's Enema 133ml RECTAL SCH ×2 (08:27→17:13)
[2020-05-19] MEDS: Heparin 5000 units/ml inj SUBQ SCH ×2 (08:33→21:01)
[2020-05-20] VITALS (7 sets, daily range): BP systolic 144–158; BP diastolic 57–87
[2020-05-20] MEDS: HydrALAZINE 50mg tab ORAL SCH ×2 (08:38→16:56)
[2020-05-20] MEDS: Metoprolol Tartrate 100mg tab ORAL SCH (08:38)
[2020-05-20] MEDS: Lactulose 20gm/30ml UDC ORAL SCH (08:39)
[2020-05-20] MEDS: Fleet's Enema 133ml RECTAL SCH (08:39)
[2020-05-20] MEDS: Heparin 5000 units/ml inj SUBQ SCH ×2 (08:43→21:24)
[2020-05-20] MEDS: Tylenol #3 tab (300mg/30mg) ORAL PRN ×3 (10:39→23:05)
--- NOTE | 2020-05-20 15:27 | Pulmonology Progress Note ---
Subjective ROS Limited/Unobtainable: No Allergies: Coded Allergies: SULFA (SULFONAMIDE ANTIBIOTICS) (Unverified Allergy, Severe, SWELLING, 11/05/17) AMPICILLIN (Unverified Allergy, Intermediate, ITCHING, 11/05/17) Objective Last 24 Hour Vital Signs Date Time Temp Pulse Resp B/P (MAP) Pulse Ox O2 Delivery O2 Flow Rate FiO2 05/20/20 12:00 57 05/20/20 12:00 96.6 80 22 100 05/20/20 11:09 96.7 05/20/20 10:09 Nasal Cannula 2.0 05/20/20 08:38 152/59 05/20/20 08:38 76 152/59 05/20/20 08:00 96.7 65 18 152/59 (90) 100 05/20/20 08:00 65 05/20/20 06:38 98.4 05/20/20 04:00 54 05/20/20 04:00 98.4 67 16 147/74 (98) 98 05/20/20 00:08 98.4 59 20 144/64 (90) 100 05/20/20 00:07 98.8 68 20 150/87 (108) 99 05/20/20 00:02 98.4 05/19/20 21:32 Nasal Cannula 2.0 05/19/20 20:00 98.4 59 20 144/64 (90) 100 05/19/20 20:00 66 05/19/20 18:37 98.5 05/19/20 17:14 142/62 05/19/20 16:00 98.5 62 20 142/62 (88) 100 05/19/20 16:00 Nasal Cannula 2.0 05/19/20 16:00 54 Intake and Output 05/19/20 05/20/20 19:00 07:00 Intake Total 480 ml Output Total 500 ml Balance -20 ml Intake Oral 480 ml Output Urine Total 500 ml # Voids 3 1 Current Medications Medications (Trade) Dose Ordered Sig/Konstantin Route PRN Reason Start Time Stop Time Status Last Admin Dose Admin Acetaminophen (Tylenol) 650 mg Q4H PRN ORAL Temp >100.5 05/18/20 23:45 06/17/20 23:44 05/20/20 06:06 Acetaminophen/ Codeine Phosphate (Tylenol #3) 2 tab Q6H PRN ORAL Pain Scale (6-10) 05/20/20 10:15 05/27/20 10:14 05/20/20 10:39 Al Hydroxide/Mg Hydroxide (Mylanta) 30 ml Q4HR PRN ORAL Constipation 05/18/20 23:45 06/17/20 23:44 Albuterol/ Ipratropium (Albuterol/ Ipratropium) 3 ml Q4H PRN HHN Shortness of Breath 05/19/20 07:30 05/24/20 07:29 Diazepam (Valium) 10 mg HSPRN PRN ORAL Insomnia 05/18/20 23:45 05/25/20 23:44 EZETIMIBE (Zetia) 10 mg BEDTIME ORAL 05/19/20 21:00 06/18/20 20:59 05/19/20 20:58 Furosemide (Lasix) 40 mg DAILY IV 05/19/20 09:00 06/18/20 08:59 05/20/20 09:55 Heparin Sodium (Porcine) (Heparin 5000 units/ml) 5,000 units EVERY 12 HOURS SUBQ 05/19/20 09:00 07/03/20 08:59 05/20/20 08:43 Hydralazine HCl (Apresoline) 100 mg BID ORAL 05/19/20 09:00 08/17/20 08:59 05/20/20 08:38 Lactulose (Cephulac) 20 gm BID ORAL 05/19/20 09:00 06/18/20 08:59 Metoprolol Tartrate (Lopressor) 100 mg DAILY ORAL 05/19/20 09:00 08/17/20 08:59 05/20/20 08:38 Pantoprazole (Protonix) 40 mg DAILY ORAL 05/19/20 09:00 06/18/20 08:59 05/20/20 08:38 Sodium Phosphate (Fleet's Sodium Phosl Enema) 133 ml BID RECTAL 05/19/20 09:00 06/18/20 08:59 Assessment/Plan Assessment/Plan ProgressNote HPI Patient is a 75-year-old woman with past history of CHF, CKD and Hypertension, admitted with shortness of breath and leg swelling for day. Feels outpatient diuretic is not helping. Denies chest pain. Denies cough. Denies fevers or chills. No other aggravating relieving factors. Denies any other associated symptoms Allergies: SULFA (SULFONAMIDE ANTIBIOTICS) (Unverified Allergy, Severe, SWELLING, 11/05/17) AMPICILLIN (Unverified Allergy, Intermediate, ITCHING, 11/05/17) Past Medical History: HTN, CHF, CKD, weakness Physical Exam Vital Signs Noted General Appearance: no apparent distress, alert, GCS 15, non-toxic Head: normocephalic, atraumatic Eyes: bilateral eye normal inspection, bilateral eye PERRL ENT: hearing grossly normal, normal pharynx, moist mm Neck: normal, no masses, no LN Respiratory: chest non-tender, lungs clear, normal breath sounds Cardiovascular: HS1, HS2, regular rate, rhythm, no edema Gastrointestinal: normal bowel sounds, non tender, soft, non-distended, no guarding, no rebound Genitourinary: normal inspection, no CVA tenderness Musculoskeletal: back normal, normal range of motion, gait/station normal, non- tender, swelling Neurologic: alert, motor strength/tone normal, oriented x3, sensory intact, no focal signs Impression: Congestive Heart Failure with exacerbation Hypertension Chronic Kidney Disease Plan: IV Lasix 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
[2020-05-20 18:09] LABS: CREATININE 3.7 MG/DL (0.55-1.30); POTASSIUM 4.9 MMOL/L (3.5-5.1)
[2020-05-21] VITALS: BP 109/55
--- NOTE | 2020-05-21 01:53 | Cardiology Progress Note ---
Subjective DATE OF SERVICE: May 20, 2020 No CP Still has swelling. Denies SOB. Monitor: Sinus with rare ectopy Objective Last 24 Hour Vital Signs Date Time Temp Pulse Resp B/P (MAP) Pulse Ox O2 Delivery O2 Flow Rate FiO2 05/21/20 00:00 98.2 54 18 109/55 (73) 100 05/20/20 21:00 Nasal Cannula 2.0 05/20/20 20:00 98.2 60 18 147/57 (87) 100 05/20/20 20:00 53 05/20/20 19:51 100 Nasal Cannula 2.0 28 05/20/20 17:27 96.8 05/20/20 16:56 156/67 05/20/20 16:06 96.8 59 20 156/67 (96) 100 05/20/20 16:00 56 05/20/20 12:00 57 05/20/20 12:00 96.6 80 22 158/76 (103) 100 05/20/20 11:09 96.7 05/20/20 10:09 Nasal Cannula 2.0 05/20/20 08:38 152/59 05/20/20 08:38 76 152/59 05/20/20 08:00 96.7 65 18 152/59 (90) 100 05/20/20 08:00 65 05/20/20 06:38 98.4 05/20/20 04:00 54 05/20/20 04:00 98.4 67 16 147/74 (98) 98 HEENT: normal ENT inspection RHYTHM: NSR LUNGS: rales bilaterally - few CARDIAC: normal rate, regular rhythm, normal S1 and S2, systolic murmur - 1/6 apical, gallop/S4 ABDOMEN: normal bowel sounds, non tender, soft, no organomegaly EXTREMITIES: +1 edema Laboratory Tests Test 05/20/20 16:10 Sodium Level 143 MMOL/L (136-145) Potassium Level 4.9 MMOL/L (3.5-5.1) Chloride Level 110 MMOL/L (98-107) H Carbon Dioxide Level 19 MMOL/L (21-32) L Anion Gap 14 mmol/L (5-15) Blood Urea Nitrogen 44 mg/dL (7-18) H Creatinine 3.7 MG/DL (0.55-1.30) H Estimat Glomerular Filtration Rate 14.4 mL/min (>60) Glucose Level 124 MG/DL (74-106) H Calcium Level 9.0 MG/DL (8.5-10.1) Assessment/Plan Assessment/Plan Acute/chr diastolic CHF Hypertension/HHD with suboptimal control Acute myocardial ischemia CKD Hx hyperlipidemia Diuresis Optimize anti-HTN and antifailure regimen DVT prophyl residential monitor Follow up troponin Trend BNP Darío Abrams MD May 21, 2020 01:53
--- NOTE | 2020-05-21 02:45 | Consultation ---
DATE OF CONSULTATION: 05/19/2020 CARDIOLOGY CONSULTATION CONSULTING PHYSICIAN: Darío Abrams MD REQUESTING PHYSICIAN: Dr. Marroquin and Danny Nash MD REASON FOR CONSULTATION: Congestive heart failure complicated by renal failure. HISTORY OF PRESENT ILLNESS: This is a 75-year-old female. She has known history of hypertensive heart and renal disease. She was last hospitalized here in October of this year with heart failure symptoms. She notes that she has had a day or two of worsening leg swelling and shortness of breath. She has has been taking her regular diuretic therapy, but feels it has not been helping. She came to the emergency room and was admitted for further acute management. In the emergency room, her workup was notable for an uncontrolled blood pressure of 190/80. Her troponin level was 0.066 and her pro-natriuretic peptide was over 16,000. Sodium was 144, potassium 4.9, bicarb 19, BUN 15, and creatinine 3.7. Electrocardiogram revealed sinus rhythm with nonspecific ST changes. PAST MEDICAL HISTORY: Includes hypertension, hyperlipidemia, chronic kidney disease with baseline creatinine in the range of 2.5 to 3, degenerative valve disease, left ventricular hypertrophy, diastolic congestive heart failure, osteoarthritis, glucose intolerance, and bronchospastic lung disease. ALLERGIES: Include sulfa and penicillin. MEDICATIONS: Reviewed and reconciled. SOCIAL HISTORY: Notable for prior smoking. No alcohol or substance abuse. REVIEW OF SYSTEMS: Prior hospitalization as outlined above. No known COVID-19 exposures. Echocardiogram in October of this year revealed normal ejection fraction, concentric hypertrophy, and mild degenerative valve disease. The patient's glucose is managed with diet. There is no history of thyroid disorder. She has been on anti-lipid drugs in the past. There is no history of seizure or stroke. She has not been on steroids or inhalers, but does have a history of bronchospastic lung disease and she has a prior smoking history. PHYSICAL EXAMINATION: VITAL SIGNS: Blood pressure 142/62, heart rate 62, respiratory rate 20, afebrile, and oxygen saturation on 2 liters is 100%. HEENT: Conjunctivae pink. Arcus senilis. Oropharynx clear. NECK: Supple. Slight elevation of jugular venous pressure. LUNGS: With few rales. There is symmetric expansion. CARDIAC: Regular rhythm and rate. Normal S1, S2. There is a fourth heart sound and a 1/6 systolic murmur at apex. Point of maximum impulse has been nondisplaced. ABDOMEN: Soft, nontender. No hepatomegaly. No ascites. EXTREMITIES: Good pulses, 1+ dependent edema. NEUROLOGIC: Nonfocal. IMPRESSION: Acute on chronic diastolic congestive heart failure; hypertensive heart disease with hypertensive urgency, now improved; acute on chronic kidney disease; hyperlipidemia; history of glucose intolerance; degenerative valve disease with no clinical significance; and acute myocardial ischemia precipitated by uncontrolled hypertension and diastolic dysfunction. PLAN: Diuresis. Monitor renal parameters and volume status. DVT prophylaxis. Follow-up troponin level. Trend natriuretic peptide assay. Darío Abrams M.D. DR: Matt JOB#: [id number] CC:
[2020-05-21 04:00] VITALS: BP 156/52
[2020-05-21] MEDS: Tylenol #3 tab (300mg/30mg) ORAL PRN ×3 (06:20→18:28)
[2020-05-21 08:00] VITALS: BP 155/46
[2020-05-21] MEDS: HydrALAZINE 50mg tab ORAL SCH ×2 (08:30→18:03)
[2020-05-21] MEDS: Metoprolol Tartrate 100mg tab ORAL SCH (08:30)
[2020-05-21] MEDS: Heparin 5000 units/ml inj SUBQ SCH ×2 (08:33→20:45)
--- NOTE | 2020-05-21 08:40 | General Progress Note ---
Subjective Allergies: Coded Allergies: SULFA (SULFONAMIDE ANTIBIOTICS) (Unverified Allergy, Severe, SWELLING, 11/05/17) AMPICILLIN (Unverified Allergy, Intermediate, ITCHING, 11/05/17) Subjective care noted some sob some leg swelling Objective Last 24 Hour Vital Signs Date Time Temp Pulse Resp B/P (MAP) Pulse Ox O2 Delivery O2 Flow Rate FiO2 05/21/20 08:30 155/46 05/21/20 08:30 64 155/46 05/21/20 04:00 97.9 56 18 156/52 (86) 100 05/21/20 04:00 50 05/21/20 00:00 98.2 54 18 109/55 (73) 100 05/20/20 21:00 Nasal Cannula 2.0 05/20/20 20:00 98.2 60 18 147/57 (87) 100 05/20/20 20:00 53 05/20/20 19:51 100 Nasal Cannula 2.0 28 05/20/20 17:27 96.8 05/20/20 16:56 156/67 05/20/20 16:06 96.8 59 20 156/67 (96) 100 05/20/20 16:00 56 05/20/20 12:00 57 05/20/20 12:00 96.6 80 22 158/76 (103) 100 05/20/20 11:09 96.7 05/20/20 10:09 Nasal Cannula 2.0 Intake and Output 05/20/20 05/21/20 19:00 07:00 Intake Total 480 ml 800 ml Balance 480 ml 800 ml Intake Oral 480 ml 800 ml # Voids 3 4 # Bowel Movements 2 Laboratory Tests 05/20/20 16:10: Sodium Level 143, Potassium Level 4.9, Chloride Level 110H, Carbon Dioxide Level 19L, Anion Gap 14, Blood Urea Nitrogen 44H, Creatinine 3.7H, Estimat Glomerular Filtration Rate 14.4, Glucose Level 124H, Calcium Level 9.0 05/21/20 08:18: Sodium Level [Pending], Potassium Level [Pending], Chloride Level [Pending], Carbon Dioxide Level [Pending], Blood Urea Nitrogen [Pending], Creatinine [Pending], Estimat Glomerular Filtration Rate [Pending], Glucose Level [Pending], Calcium Level [Pending], White Blood Count [Pending], Red Blood Count [Pending], Hemoglobin [Pending], Hematocrit [Pending], Mean Corpuscular Volume [Pending], Mean Corpuscular Hemoglobin [Pending], Mean Corpuscular Hemoglobin Concent [Pending], Red Cell Distribution Width [Pending], Platelet Count [Pending], Mean Platelet Volume [Pending], Neutrophils (%) (Auto) [Pending], Lymphocytes (%) (Auto) [Pending], Monocytes (%) (Auto) [Pending], Eosinophils (%) (Auto) [Pending], Basophils (%) (Auto) [Pending], Magnesium Level [Pending], Troponin I [Pending], Pro-B-Type Natriuretic Peptide [Pending] Height (Feet): 5 Height (Inches): 7.00 Weight (Pounds): 180 Objective WDWN NAD clear breath sounds bilaterally without rhonchi or wheeze [id number] without MRG NABS nontender no HSM no CC trace edema nonfocal Assessment/Plan Assessment/Plan: Acute on chronic diastolic congestive heart failure; hypertensive heart disease; acute on chronic kidney disease; hyperlipidemia; history of glucose intolerance; degenerative valve disease; acute myocardial ischemia precipitated by uncontrolled hypertension and diastolic dysfunction. COPD PLAN diurese cards note renal to follow monitor labs and exam monitor UO patient has been noncompliant with meds overall impression, plan, and exam edited and reviewed in detail care discussed with Danny Giraldo MD May 21, 2020 08:40
[2020-05-21 08:48] LABS: BASOPHILS % (AUTO) 0.6 % (0.0-2.0); EOSINOPHILS % (AUTO) 3.1 % (0.0-3.0); HEMATOCRIT 27.5 % (37.0-47.0); HEMOGLOBIN 9.1 G/DL (12.0-16.0); LYMPHOCYTES % (AUTO) 17.4 % (20.0-45.0); MEAN CORPUSCULAR VOLUME 96 FL (80-99); PLATELET COUNT 145 K/UL (150-450); RED BLOOD COUNT 2.87 M/UL (4.20-5.40); RED CELL DISTRIBUTION WIDTH 15.7 % (11.6-14.8); WHITE BLOOD COUNT 7.3 K/UL (4.8-10.8)
[2020-05-21] MEDS ORDERED: Lactulose 20gm/30ml UDC ORAL PRN (09:00)
[2020-05-21] MEDS ORDERED: Fleet's Enema 133ml RECTAL PRN (09:00)
[2020-05-21 09:26] LABS: CALCIUM 8.3 MG/DL (8.5-10.1); CREATININE 3.7 MG/DL (0.55-1.30); POTASSIUM 4.4 MMOL/L (3.5-5.1)
[2020-05-21 12:27] VITALS: BP 154/61
--- NOTE | 2020-05-21 13:14 | Consultation ---
DATE OF CONSULTATION: 05/21/2020 NEPHROLOGY CONSULTATION CONSULTING PHYSICIAN: Aden Cosme MD. ATTENDING PHYSICIAN: Danny Nash MD. REASON FOR CONSULTATION: Elevated BUN and creatinine. HISTORY OF PRESENT ILLNESS: This is a 75-year-old female admitted for shortness of breath and leg edema. I am asked to see the patient for elevation of BUN and creatinine. PAST MEDICAL HISTORY: 1. Congestive heart failure. 2. CKD, etiology unclear. 3. Hypertensive cardiovascular disease. MEDICATIONS: Tylenol as needed, Valium as needed, DuoNeb inhalation, Zetia, Fleet enema p.r.n., which was discontinued, Lasix IV given intermittently, Apresoline, lactulose, metoprolol, Mylanta, Protonix. ALLERGIES: Ampicillin, sulfa. FAMILY HISTORY: Unremarkable. SOCIAL HISTORY: She lives at home. HABITS: She is nonsmoker, nondrinker. There is no history of illicit drug abuse. REVIEW OF SYSTEMS: HEENT: Hearing and eyesight are normal. ENDOCRINE: No history of diabetes, thyroid, or adrenal problems. RESPIRATORY: Significant for orthopnea, paroxysmal nocturnal dyspnea, and dyspnea on effort. CARDIAC: She denies chest pain or palpitations. GASTROINTESTINAL: No history of hematochezia, melena, hematemesis, diarrhea, or constipation. NEUROLOGIC: No history of stroke, syncope, or Parkinson disease. PHYSICAL EXAMINATION: GENERAL: This is an elderly female who is in no acute distress. VITAL SIGNS: Blood pressure 155/46, pulse 64 and regular, respirations 18, temperature 97.5. HEENT: Head is normocephalic and atraumatic. Pupils are equal, round, and reactive to light and accommodation consensually. NECK: Supple. Trachea midline. There was no lymphadenopathy or thyromegaly. LUNGS: Clear to auscultation and percussion. HEART: Regular rate and rhythm without rubs, murmurs, or gallops. ABDOMEN: Soft and nontender. Bowel sounds were active. EXTREMITIES: Notable for 2+ edema. NEUROLOGIC: She is alert and oriented x4. Cranial nerves II through XII intact. LABORATORY AND ANCILLARY DATA: Electrolytes within normal limits. BUN 41, creatinine 3.7, magnesium 1.8. IMAGING REPORTS: Chest x-ray, elderly consolidation, no pulmonary edema. ASSESSMENT: 1. Congestive heart failure. 2. Hypertensive cardiovascular disease. 3. 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 PLAN: 1. Obtain renal ultrasound. 2. Obtain 24-hours creatinine clearance to estimate the patient's GFR. Thank you, Dr. Nash, for letting me to participate in the care of this patient. Aden Cosme M.D. DR: Gray JOB#: [id number] CC: LOUANN
--- NOTE | 2020-05-21 13:56 | Diagnostic Imaging Report ---
Indication: Reason For Exam: DVT Technique: Grayscale and duplex images of the bilateral lower extremity veins Comparison: None Findings: Bilaterally, grayscale and duplex images demonstrate no evidence of intraluminal thrombus. Normal phasic Doppler waveforms, demonstrating normal augmentation response and no evidence of valvular insufficiency. Greater saphenous vein(s) and tibial veins are patent. Normal compressibility. Impression: Negative for evidence of lower extremity deep venous thrombosis bilaterally
--- NOTE | 2020-05-21 14:15 | Consultation ---
DATE OF CONSULTATION: 05/21/2020 NEPHROLOGY CONSULTATION CONSULTING PHYSICIAN: Aden Cosme MD. ATTENDING PHYSICIAN: Danny Nash MD. REASON FOR CONSULTATION: Elevated BUN and creatinine. HISTORY OF PRESENT ILLNESS: This is a 75-year-old female admitted for shortness of breath and leg edema. I am asked to see the patient for elevation of BUN and creatinine. PAST MEDICAL HISTORY: 1. Congestive heart failure. 2. CKD, etiology unclear. 3. Hypertensive cardiovascular disease. MEDICATIONS: Tylenol as needed, Valium as needed, DuoNeb inhalation, Zetia, Fleet enema p.r.n., which was discontinued, Lasix IV given intermittently, Apresoline, lactulose, metoprolol, Mylanta, Protonix. ALLERGIES: Ampicillin, sulfa. FAMILY HISTORY: Unremarkable. SOCIAL HISTORY: She lives at home. HABITS: She is nonsmoker, nondrinker. There is no history of illicit drug abuse. REVIEW OF SYSTEMS: HEENT: Hearing and eyesight are normal. ENDOCRINE: No history of diabetes, thyroid, or adrenal problems. RESPIRATORY: Significant for orthopnea, paroxysmal nocturnal dyspnea, and dyspnea on effort. CARDIAC: She denies chest pain or palpitations. GASTROINTESTINAL: No history of hematochezia, melena, hematemesis, diarrhea, or constipation. NEUROLOGIC: No history of stroke, syncope, or Parkinson disease. PHYSICAL EXAMINATION: GENERAL: This is an elderly female who is in no acute distress. VITAL SIGNS: Blood pressure 155/46, pulse 64 and regular, respirations 18, temperature 97.5. HEENT: Head is normocephalic and atraumatic. Pupils are equal, round, and reactive to light and accommodation consensually. NECK: Supple. Trachea midline. There was no lymphadenopathy or thyromegaly. LUNGS: Clear to auscultation and percussion. HEART: Regular rate and rhythm without rubs, murmurs, or gallops. ABDOMEN: Soft and nontender. Bowel sounds were active. EXTREMITIES: Notable for 2+ edema. NEUROLOGIC: She is alert and oriented x4. Cranial nerves II through XII intact. LABORATORY AND ANCILLARY DATA: Electrolytes within normal limits. BUN 41, creatinine 3.7, magnesium 1.8. IMAGING REPORTS: Chest x-ray, early consolidation, no pulmonary edema. ASSESSMENT: 1. Congestive heart failure. 2. . 3. Hypertensive cardiovascular disease. 4. 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 PLAN: 1. Obtain renal ultrasound. 2. Obtain 24-hours creatinine clearance to estimate the patient's GFR. Thank you, Dr. Nash, for letting me to participate in the care of this patient. Aden Cosme M.D. DR: Gray JOB#: [id number] CC:
--- NOTE | 2020-05-21 15:20 | Diagnostic Imaging Report ---
Indication: Abnormal renal function tests Technique: Grayscale and duplex images of the kidneys, retroperitoneum, and bladder were obtained. Comparison: none Findings: Right kidney measures 9 cm in length. Left kidney measures 8.7 cm in length. Both kidneys demonstrate slightly increased echogenicity. No hydronephrosis. There is a cyst in the right interpolar region. There is a calcification in or adjacent to the wall of the cyst. Other smaller cysts are also seen on the right. There is a small cyst with a mural or intraluminal calcification in the left kidney as well. Normal inferior vena cava. Bladder is normal. Impression: Negative for hydronephrosis Slightly increased renal echogenicity bilaterally, consistent with medical renal disease Bilateral cysts with associated calcifications.
[2020-05-21 16:00] VITALS: BP 130/46
[2020-05-21 20:00] VITALS: BP 142/54
--- NOTE | 2020-05-21 20:55 | Cardiology Progress Note ---
Subjective DATE OF SERVICE: May 21, 2020 No CP; troponin has normalized. Still has some swelling. Denies SOB. No accurate I/O's Monitor: Sinus with rare ectopy Objective Last 24 Hour Vital Signs Date Time Temp Pulse Resp B/P (MAP) Pulse Ox O2 Delivery O2 Flow Rate FiO2 05/21/20 20:40 100 Nasal Cannula 2.0 28 05/21/20 20:39 59 16 100 Nasal Cannula 2.0 28 05/21/20 18:03 130/46 05/21/20 16:00 99.9 55 18 130/46 (74) 05/21/20 16:00 55 05/21/20 12:27 99.5 54 18 154/61 (92) 100 05/21/20 12:00 54 05/21/20 09:30 Nasal Cannula 2.0 05/21/20 08:30 155/46 05/21/20 08:30 64 155/46 05/21/20 08:00 97.5 64 18 155/46 (82) 05/21/20 08:00 73 05/21/20 04:00 97.9 56 18 156/52 (86) 100 05/21/20 04:00 50 05/21/20 00:00 98.2 54 18 109/55 (73) 100 05/20/20 21:00 Nasal Cannula 2.0 HEENT: normal ENT inspection RHYTHM: NSR LUNGS: rales bilaterally - few CARDIAC: normal rate, regular rhythm, normal S1 and S2, systolic murmur - 1/6 apical, gallop/S4 ABDOMEN: normal bowel sounds, non tender, soft, no organomegaly EXTREMITIES: +1 edema Laboratory Tests Test 05/21/20 08:18 White Blood Count 7.3 K/UL (4.8-10.8) Red Blood Count 2.87 M/UL (4.20-5.40) L Hemoglobin 9.1 G/DL (12.0-16.0) L Hematocrit 27.5 % (37.0-47.0) L Mean Corpuscular Volume 96 FL (80-99) Mean Corpuscular Hemoglobin 31.9 PG (27.0-31.0) H Mean Corpuscular Hemoglobin Concent 33.3 G/DL (32.0-36.0) Red Cell Distribution Width 15.7 % (11.6-14.8) H Platelet Count 145 K/UL (150-450) L Mean Platelet Volume 8.3 FL (6.5-10.1) Neutrophils (%) (Auto) 73.0 % (45.0-75.0) Lymphocytes (%) (Auto) 17.4 % (20.0-45.0) L Monocytes (%) (Auto) 6.0 % (1.0-10.0) Eosinophils (%) (Auto) 3.1 % (0.0-3.0) H Basophils (%) (Auto) 0.6 % (0.0-2.0) Sodium Level 142 MMOL/L (136-145) Potassium Level 4.4 MMOL/L (3.5-5.1) Chloride Level 110 MMOL/L (98-107) H Carbon Dioxide Level 21 MMOL/L (21-32) Anion Gap 11 mmol/L (5-15) Blood Urea Nitrogen 41 mg/dL (7-18) H Creatinine 3.7 MG/DL (0.55-1.30) H Estimat Glomerular Filtration Rate 14.4 mL/min (>60) Glucose Level 157 MG/DL (74-106) H Calcium Level 8.3 MG/DL (8.5-10.1) L Magnesium Level 1.8 MG/DL (1.8-2.4) Troponin I 0.012 ng/mL (0.000-0.056) Pro-B-Type Natriuretic Peptide 7127 pg/mL (0-125) H Assessment/Plan Assessment/Plan Acute/chr diastolic CHF Hypertension/HHD with suboptimal control Acute myocardial ischemia Ac/chr kidney disease Hx hyperlipidemia Diuresis Optimize anti-HTN regimen Trend BNP Renal studies in progress Repeat CXR Darío Abrams MD May 21, 2020 20:55
[2020-05-22] VITALS: BP 154/58
[2020-05-22] MEDS: Tylenol #3 tab (300mg/30mg) ORAL PRN ×3 (00:20→13:55)
[2020-05-22 04:00] VITALS: BP 146/62
--- NOTE | 2020-05-22 06:25 | General Progress Note ---
Subjective ROS Limited/Unobtainable: No Constitutional: Reports: no symptoms HEENT: Reports: no symptoms Cardiovascular: Reports: chest pain Respiratory: Reports: shortness of breath Gastrointestinal/Abdominal: Reports: no symptoms Genitourinary: Reports: no symptoms Neurologic/Psychiatric: Reports: no symptoms Endocrine: Reports: no symptoms Hematologic/Lymphatic: Reports: no symptoms Allergies: Coded Allergies: SULFA (SULFONAMIDE ANTIBIOTICS) (Unverified Allergy, Severe, SWELLING, 11/05/17) AMPICILLIN (Unverified Allergy, Intermediate, ITCHING, 11/05/17) All Systems: reviewed and negative except above Subjective no overnight events. resting comfortable. no chest pain or sob. no headaches. bp stable. no hydro on renal us Objective Last 24 Hour Vital Signs Date Time Temp Pulse Resp B/P (MAP) Pulse Ox O2 Delivery O2 Flow Rate FiO2 05/22/20 04:00 54 05/22/20 04:00 97.5 56 18 146/62 (90) 99 05/22/20 00:00 98.4 57 18 154/58 (90) 99 05/22/20 00:00 56 05/21/20 21:00 Nasal Cannula 2.0 05/21/20 21:00 56 05/21/20 20:40 100 Nasal Cannula 2.0 28 05/21/20 20:39 59 16 100 Nasal Cannula 2.0 28 05/21/20 20:00 98.4 60 18 142/54 (83) 100 05/21/20 18:03 130/46 05/21/20 16:00 99.9 55 18 130/46 (74) 05/21/20 16:00 55 05/21/20 12:27 99.5 54 18 154/61 (92) 100 05/21/20 12:00 54 05/21/20 09:30 Nasal Cannula 2.0 05/21/20 08:30 155/46 05/21/20 08:30 64 155/46 05/21/20 08:00 97.5 64 18 155/46 (82) 05/21/20 08:00 73 Intake and Output 05/21/20 05/22/20 18:59 06:59 Intake Total 870 ml 340 ml Output Total 400 ml 720 ml Balance 470 ml -380 ml Intake Oral 870 ml 340 ml Output Urine Total 400 ml 720 ml # Voids 3 Laboratory Tests 05/21/20 08:18: White Blood Count 7.3, Red Blood Count 2.87L, Hemoglobin 9.1L, Hematocrit 27.5L, Mean Corpuscular Volume 96, Mean Corpuscular Hemoglobin 31.9H, Mean Corpuscular Hemoglobin Concent 33.3, Red Cell Distribution Width 15.7H, Platelet Count 145L, Mean Platelet Volume 8.3, Neutrophils (%) (Auto) 73.0, Lymphocytes (%) (Auto) 17.4L, Monocytes (%) (Auto) 6.0, Eosinophils (%) (Auto) 3.1H, Basophils (%) (Auto) 0.6, Sodium Level 142, Potassium Level 4.4, Chloride Level 110H, Carbon Dioxide Level 21, Anion Gap 11, Blood Urea Nitrogen 41H, Creatinine 3.7H, Estimat Glomerular Filtration Rate 14.4, Glucose Level 157H, Calcium Level 8.3L, Magnesium Level 1.8, Troponin I 0.012, Pro-B-Type Natriuretic Peptide 7127H Height (Feet): 5 Height (Inches): 7.00 Weight (Pounds): 180 General Appearance: WD/WN, thin EENT: normal ENT inspection Neck: non-tender, normal alignment, supple Cardiovascular: normal rate, regular rhythm Respiratory/Chest: chest wall non-tender, lungs clear, normal breath sounds, no respiratory distress, no accessory muscle use Abdomen: normal bowel sounds, non tender, soft, no organomegaly, no mass Edema: no edema noted Arm (L), no edema noted Arm (R) Neurologic: magnetizer II-XII grossly normal, alert, responsive Lymphatic: normal anterior cervical (L), normal anterior cervical (R) Assessment/Plan Problem List: (1) Hypertension ICD Codes: I10 - Essential (primary) hypertension SNOMED: 68453050 (2) Myocardial ischemia ICD Codes: I25.9 - Chronic ischemic heart disease, unspecified SNOMED: 929280339 (3) CHF exacerbation ICD Codes: I50.9 - Heart failure, unspecified SNOMED: 901744872, [id number] Qualifiers: Qualified Codes: I50.9 - Heart failure, unspecified (4) Osteoarthritis ICD Codes: M19.90 - Unspecified osteoarthritis, unspecified site SNOMED: 095340318 Status: stable Assessment/Plan: maximize anti-failure regime dvt/stress ulcer prophylaxis follow up cxr dvt/stress ulcer prophylaxis o2 as needed Kevin Soto MD May 22, 2020 06:25
--- NOTE | 2020-05-22 07:18 | General Progress Note ---
Subjective Allergies: Coded Allergies: SULFA (SULFONAMIDE ANTIBIOTICS) (Unverified Allergy, Severe, SWELLING, 11/05/17) AMPICILLIN (Unverified Allergy, Intermediate, ITCHING, 11/05/17) Subjective care noted some sob improved leg swelling Objective Last 24 Hour Vital Signs Date Time Temp Pulse Resp B/P (MAP) Pulse Ox O2 Delivery O2 Flow Rate FiO2 05/22/20 04:00 54 05/22/20 04:00 97.5 56 18 146/62 (90) 99 05/22/20 00:00 98.4 57 18 154/58 (90) 99 05/22/20 00:00 56 05/21/20 21:00 Nasal Cannula 2.0 05/21/20 21:00 56 05/21/20 20:40 100 Nasal Cannula 2.0 28 05/21/20 20:39 59 16 100 Nasal Cannula 2.0 28 05/21/20 20:00 98.4 60 18 142/54 (83) 100 05/21/20 18:03 130/46 05/21/20 16:00 99.9 55 18 130/46 (74) 05/21/20 16:00 55 05/21/20 12:27 99.5 54 18 154/61 (92) 100 05/21/20 12:00 54 05/21/20 09:30 Nasal Cannula 2.0 05/21/20 08:30 155/46 05/21/20 08:30 64 155/46 05/21/20 08:00 97.5 64 18 155/46 (82) 05/21/20 08:00 73 Intake and Output 05/21/20 05/22/20 19:00 07:00 Intake Total 870 ml 340 ml Output Total 400 ml 720 ml Balance 470 ml -380 ml Intake Oral 870 ml 340 ml Output Urine Total 400 ml 720 ml # Voids 3 Laboratory Tests 05/21/20 08:18: White Blood Count 7.3, Red Blood Count 2.87L, Hemoglobin 9.1L, Hematocrit 27.5L, Mean Corpuscular Volume 96, Mean Corpuscular Hemoglobin 31.9H, Mean Corpuscular Hemoglobin Concent 33.3, Red Cell Distribution Width 15.7H, Platelet Count 145L, Mean Platelet Volume 8.3, Neutrophils (%) (Auto) 73.0, Lymphocytes (%) (Auto) 17.4L, Monocytes (%) (Auto) 6.0, Eosinophils (%) (Auto) 3.1H, Basophils (%) (Auto) 0.6, Sodium Level 142, Potassium Level 4.4, Chloride Level 110H, Carbon Dioxide Level 21, Anion Gap 11, Blood Urea Nitrogen 41H, Creatinine 3.7H, Estimat Glomerular Filtration Rate 14.4, Glucose Level 157H, Calcium Level 8.3L, Magnesium Level 1.8, Troponin I 0.012, Pro-B-Type Natriuretic Peptide 7127H Height (Feet): 5 Height (Inches): 7.00 Weight (Pounds): 180 Objective WDWN NAD clear breath sounds bilaterally without rhonchi or wheeze [id number] without MRG NABS nontender no HSM no CC trace edema nonfocal Assessment/Plan Status: stable Assessment/Plan: Acute on chronic diastolic congestive heart failure; hypertensive heart disease; acute on chronic kidney disease; hyperlipidemia; history of glucose intolerance; degenerative valve disease; acute myocardial ischemia precipitated by uncontrolled hypertension and diastolic dysfunction. COPD PLAN diurese as able cards note renal noted monitor labs and exam monitor UO patient has been noncompliant with meds overall hope to dc soon impression, plan, and exam edited and reviewed in detail care discussed with Danny Giraldo MD May 22, 2020 07:18
[2020-05-22 07:51] LABS: ANION GAP 11 mmol/L (5-15); BLOOD UREA NITROGEN 49 mg/dL (7-18); CALCIUM 8.5 MG/DL (8.5-10.1); CARBON DIOXIDE 22 MMOL/L (21-32); CHLORIDE 108 MMOL/L (98-107); CREATININE 4.1 MG/DL (0.55-1.30); PHOSPHORUS 4.3 MG/DL (2.5-4.9); POTASSIUM 4.7 MMOL/L (3.5-5.1); SODIUM 141 MMOL/L (136-145)
[2020-05-22 08:00] VITALS: BP 160/70
[2020-05-22 08:04] LABS: % IRON SATURATION 31 % (15-50); IRON 80 ug/dL (50-175); TOTAL IRON BINDING CAPACITY 261 ug/dL (250-450)
[2020-05-22] MEDS: Heparin 5000 units/ml inj SUBQ SCH (09:00)
[2020-05-22 09:42] VITALS: BP 160/70
[2020-05-22] MEDS: HydrALAZINE 50mg tab ORAL SCH (09:42)
[2020-05-22] MEDS: Metoprolol Tartrate 100mg tab ORAL SCH (09:42)
[2020-05-22] MEDS ORDERED: FUROSEMIDE20 M1 ORAL (11:25)
--- NOTE | 2020-05-22 11:33 | Nephrology Progress Note ---
Assessment/Plan Plan Findings CW ESRD. Spoke to patient. Needs to start HD. See orders. Subjective Subjective No new c/o Objective Objective Last 24 Hour Vital Signs Date Time Temp Pulse Resp B/P (MAP) Pulse Ox O2 Delivery O2 Flow Rate FiO2 05/22/20 09:42 160/70 05/22/20 09:42 55 160/70 05/22/20 09:00 Nasal Cannula 2.0 05/22/20 08:00 98.1 60 20 160/70 (100) 100 05/22/20 08:00 55 05/22/20 04:00 54 05/22/20 04:00 97.5 56 18 146/62 (90) 99 05/22/20 00:00 98.4 57 18 154/58 (90) 99 05/22/20 00:00 56 05/21/20 21:00 Nasal Cannula 2.0 05/21/20 21:00 56 05/21/20 20:40 100 Nasal Cannula 2.0 28 05/21/20 20:39 59 16 100 Nasal Cannula 2.0 28 05/21/20 20:00 98.4 60 18 142/54 (83) 100 05/21/20 18:03 130/46 05/21/20 16:00 99.9 55 18 130/46 (74) 05/21/20 16:00 55 05/21/20 12:27 99.5 54 18 154/61 (92) 100 05/21/20 12:00 54 Intake and Output 05/21/20 05/22/20 19:00 07:00 Intake Total 870 ml 340 ml Output Total 400 ml 720 ml Balance 470 ml -380 ml Intake Oral 870 ml 340 ml Output Urine Total 400 ml 720 ml # Voids 3 Laboratory Tests 05/22/20 06:40: Sodium Level 141, Potassium Level 4.7, Chloride Level 108H, Carbon Dioxide Level 22, Anion Gap 11, Blood Urea Nitrogen 49H, Creatinine 4.1H, Estimat Glomerular Filtration Rate 12.8, Glucose Level 99, Calcium Level 8.5, Phosphorus Level 4.3, Iron Level 80, Total Iron Binding Capacity 261, Percent Iron Saturation 31, Unsaturated Iron Binding 181, Hepatitis A IgM Antibody [Pending], Hepatitis B Surface Antigen [Pending], Hepatitis B Core IgM Antibody [Pending], Hepatitis C Antibody [Pending] Height (Feet): 5 Height (Inches): 7.00 Weight (Pounds): 180 Objective CV RR Lungs CTA Abd SNT. BS + E No CCE Aden Cosme MD May 22, 2020 11:33
--- NOTE | 2020-05-22 14:17 | Diagnostic Imaging Report ---
Indication: Abnormal chest sounds Technique: 2 views of the chest Comparison: 05/18/2020 one view chest Findings: No acute infiltrates, effusions, congestion. Normal heart size. No significant change Impression: Negative
--- NOTE | 2020-05-22 21:57 | Cardiology Progress Note ---
Subjective DATE OF SERVICE: May 22, 2020 No CP. Now has minimal swelling. Denies SOB. No accurate I/O's CXR (05/22/20) clear lung hightower Monitor: Sinus with rare ectopy Objective Last 24 Hour Vital Signs Date Time Temp Pulse Resp B/P (MAP) Pulse Ox O2 Delivery O2 Flow Rate FiO2 05/22/20 09:42 160/70 05/22/20 09:42 55 160/70 05/22/20 09:00 Nasal Cannula 2.0 05/22/20 08:00 98.1 60 20 160/70 (100) 100 05/22/20 08:00 55 05/22/20 04:00 54 05/22/20 04:00 97.5 56 18 146/62 (90) 99 05/22/20 00:00 98.4 57 18 154/58 (90) 99 05/22/20 00:00 56 ROS: unchanged from my initial evaluation HEENT: normal ENT inspection RHYTHM: NSR LUNGS: rales bilaterally - few CARDIAC: normal rate, regular rhythm, normal S1 and S2, systolic murmur - 1/6 apical, gallop/S4 ABDOMEN: normal bowel sounds, non tender, soft, no organomegaly EXTREMITIES: +1 edema Laboratory Tests Test 05/22/20 06:40 Sodium Level 141 MMOL/L (136-145) Potassium Level 4.7 MMOL/L (3.5-5.1) Chloride Level 108 MMOL/L (98-107) H Carbon Dioxide Level 22 MMOL/L (21-32) Anion Gap 11 mmol/L (5-15) Blood Urea Nitrogen 49 mg/dL (7-18) H Creatinine 4.1 MG/DL (0.55-1.30) H Estimat Glomerular Filtration Rate 12.8 mL/min (>60) Glucose Level 99 MG/DL (74-106) Calcium Level 8.5 MG/DL (8.5-10.1) Phosphorus Level 4.3 MG/DL (2.5-4.9) Iron Level 80 ug/dL (50-175) Total Iron Binding Capacity 261 ug/dL (250-450) Percent Iron Saturation 31 % (15-50) Unsaturated Iron Binding 181 ug/dL (112-346) Hepatitis A IgM Antibody Pending Hepatitis B Surface Antigen Pending Hepatitis B Core IgM Antibody Pending Hepatitis C Antibody Pending Assessment/Plan Assessment/Plan Acute/chr diastolic CHF Hypertension/HHD with suboptimal control Acute myocardial ischemia Ac/chr kidney disease Hx hyperlipidemia Diuresis - maint dose oral dose Maintain current anti-HTN regimen Advised patient to comply with therapy incl meds/diet as outpatient in order to delay need for dialysis. Darío Abrams MD May 22, 2020 21:57
[2020-05-23] MEDS ORDERED: Heparin Sod 1000 units/ml 10ml IV PRN (06:00)
[2020-05-23] MEDS ORDERED: Heparin 1000 units/ml 1ml Vial INJ PRN (06:00)
--- NOTE | 2020-05-23 12:30 | Discharge Summary ---
Discharge Summary Discharge Summary _ DATE OF ADMISSION: 05/18/2020 DATE OF DISCHARGE: 05/22/2020 DISCHARGED BY: Dr. Nash REASON FOR ADMISSION: 75 years old female with past medical history of hypertension, CHF, osteoarthritis, presented to emergency department with complaint of shortness of breath and leg swelling for 1 day. Patient reported that she was taking prescribed water pill , but it does not help her anymore. She denied chest pain. She denied cough. She denied fever and chills. Upon evaluation blood pressure was elevated 190/80 , patient was slightly tachypneic with respiratory rate 24 ; pulse oximetry was stable on room air. Laboratory work-up revealed no leukocytosis , hemoglobin 10.3, hematocrit 32.3, platelet count 231. Stable electrolytes. BUN 50, creatinine 3.7. Glucose 102. Troponin 0.066 , pro BNP 60078. EKG reveals sinus rhythm , no acute ischemic changes. Chest x-ray demonstrated mild bibasilar hazy lung capacity, possibly due to low lung volumes and bronchovascular crowding, but could represent early con solidation or pulmonary edema. 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 Abrams health education specialist Dr. Barrett [facility] COURSE: Patient admitted to telemetry floor. Second troponin negative -0.012. EKG revealed sinus rhythm , no acute ischemic changes. Venous duplex bilateral lower extremity revealed no evidence of acute DVT. Diuresis with close monitoring of volumes and cardiorenal parameters provided. [place] [address]204 down to 7127. Follow-up chest x-ray on 05/22 revealed clear lung hightower. Diuretics were changed to maintenance dose. Supplemental oxygen provided and titrated to keep pulse oximetry above 92%. Blood pressure was managed with beta-bell and diuretic; blood pressure stabilized. Blood pressure improved. Form Layer followed. Finding were consistent with end-stage renal disease . Renal parameters and electrolytes were closely monitored , electrolytes corrected as needed. Leg swelling improved. Patient was counseled on low-salt low-cholesterol diet. Patient was advised to comply with therapy including medication and diet as outpatient in order to delay need for dialysis. Patient clinically stabilized and was ready for discharge FINAL DIAGNOSES: Acute on chronic diastolic congestive heart failure Hypertension/hypertensive heart disease with initial hypertensive urgency Acute myocardial ischemia Acute on chronic kidney disease Hyperlipidemia Myocardial ischemia , precipitated by uncontrolled hypertension and diastolic dysfunction COPD DISCHARGE MEDICATIONS: See Medication Reconciliation list. DISCHARGE INSTRUCTIONS: Patient was discharged home with home health services. Follow up with primary care provider in one week. I have been assigned to dictate discharge summary for this account. I was not involved in the patient's management. Keya Garcia NP May 23, 2020 12:30
--- NOTE | 2020-06-27 02:16 | Cardiology Report ---
APPROVED REPORT EKG Measurement Heart [id number] <Conclusion> Normal sinus rhythm Moderate voltage criteria for LVH, may be normal variant Nonspecific ST abnormality Abnormal ECG
== END 2020-05-22 16:30 | disposition home health service (06) | DRG 291 ==
LOC: EMR 18:48 → 2E 18:51 → EDBEDREQ 21:10 → 2E 23:18
DX: I13.2 Hypertensive heart and chronic kidney disease with heart failure and with stage 5 chronic kidney disease, or end stage renal disease (principal); I50.33 Acute on chronic diastolic (congestive) heart failure; N17.9 Acute kidney failure, unspecified; N18.5 Chronic kidney disease, stage 5; I24.8 Other forms of acute ischemic heart disease; I51.3 Intracardiac thrombosis, not elsewhere classified; E78.5 Hyperlipidemia, unspecified; I35.9 Nonrheumatic aortic valve disorder, unspecified; Z88.8 Allergy status to other drugs, medicaments and biological substances; I16.0 Hypertensive urgency; J44.9 Chronic obstructive pulmonary disease, unspecified; M19.90 Unspecified osteoarthritis, unspecified site; J98.4 Other disorders of lung; Z88.0 Allergy status to penicillin; Z91.14 Patient's other noncompliance with medication regimen
CPT/HCPCS: 36415; 71045; 71046; 76770; 80048; 80053; 83540; 83550; 83735; 83880; 84100; 84484; 85025; 86705; 86709; 86803; 87340; 93005; 93970; 94664; 96374; 96375; 99291

== ENCOUNTER → 2020-05-28 | Outpatient (CLI) | payer MEDICARE, OTHER ==
[~2020-05-28] MED LIST changes: +FUROSEMIDE20 M1 ORAL
[2020-05-28 12:34] LABS: ALBUMIN 3.7 G/DL (3.4-5.0); BILIRUBIN,TOTAL 0.2 MG/DL (0.2-1.0); CREATININE 4.8 MG/DL (0.55-1.30)
== END | disposition home or self-care (01) ==
LOC: LAB 10:56
DX: N19 Unspecified kidney failure (principal); I50.9 Heart failure, unspecified; I11.0 Hypertensive heart disease with heart failure
CPT/HCPCS: 36415; 80053; 83880

== ENCOUNTER → 2020-08-21 | Outpatient (CLI) | payer MEDICARE, OTHER ==
[2020-08-21 14:39] LABS: BASOPHILS % (AUTO) 0.7 % (0.0-2.0); EOSINOPHILS % (AUTO) 1.9 % (0.0-3.0); HEMATOCRIT 31.4 % (37.0-47.0); HEMOGLOBIN 9.6 G/DL (12.0-16.0); LYMPHOCYTES % (AUTO) 18.1 % (20.0-45.0); MEAN CORPUSCULAR VOLUME 99 FL (80-99); MONOCYTES % (AUTO) 6.3 % (1.0-10.0); PLATELET COUNT 172 K/UL (150-450); RED BLOOD COUNT 3.17 M/UL (4.20-5.40); RED CELL DISTRIBUTION WIDTH 13.9 % (11.6-14.8); WHITE BLOOD COUNT 9.1 K/UL (4.8-10.8)
[2020-08-21 15:01] LABS: ALANINE AMINOTRANSFERASE 13 U/L (12-78); ALBUMIN 3.4 G/DL (3.4-5.0); ALBUMIN/GLOBULIN RATIO 1.2 (1.0-2.7); ALKALINE PHOSPHATASE 121 U/L (46-116); ANION GAP 15 mmol/L (5-15); ASPARTATE AMINO TRANSFERASE 19 U/L (15-37); BILIRUBIN,TOTAL 0.2 MG/DL (0.2-1.0); BLOOD UREA NITROGEN 82 mg/dL (7-18); CALCIUM 8.7 MG/DL (8.5-10.1); CARBON DIOXIDE 15 MMOL/L (21-32); CHLORIDE 109 MMOL/L (98-107); CHOLESTEROL 153 MG/DL (< 200); CREATININE 5.6 MG/DL (0.55-1.30); HDL CHOLESTEROL 73 MG/DL (40-60); SODIUM 139 MMOL/L (136-145); TRIGLYCERIDES 94 MG/DL (30-150)
== END | disposition home or self-care (01) ==
LOC: LAB 13:53
DX: N19 Unspecified kidney failure (principal); I11.0 Hypertensive heart disease with heart failure; I50.9 Heart failure, unspecified
CPT/HCPCS: 36415; 80053; 80061; 83880; 85025